=== PATIENT | male | born 1985 | race Asian ===

== ENCOUNTER 2023-08-17 16:34 | Inpatient (IN) | payer OTHER, MEDICARE, SELFPAY ==
[2023-08-17] VITALS (11 sets, daily range): BP systolic 128–164; BP diastolic 70–87; BMI 30.7; BMI 30.5
--- NOTE | 2023-08-17 12:41 | ED.GENMED ---
History of Present Illness
<ELISABETH Degroot - Last Filed: 08/17/23 16:13>
General
Chief Complaint: Fever
Source: patient
Exam Limitations: none
Time Seen by Provider: 08/17/23 12:29
Nursing documentation reviewed up to this point in time: agreed with
Travel History
Have you had any contact with someone who has COVID-19?: No
Do you have any symptoms of coronavirus? Fever > 100 degrees, chills, cough, shortness of breath, sore throat, loss of taste or smell, muscle aches, or headache?: No
History of Present Illness
History of Present Illness:
37-year-old male with past medical history of end-stage renal disease failed kidney transplant presently on hemodialysis Sunday at home, history of hypertension diabetes presents to the ER for evaluation of cough and fever for the
past several days. Patient started Sunday with chills and cough and on Sunday went to his family doctor's office he had tested for COVID flu and RSV which were negative. He has continued with fever as high as 102.5. His forest economist Dr. Bui
prescribed him sleep yesterday. He took 2 tablets yesterday 1 tablet today but continues to complain of fevers. He is not short of breath.
During my exam patient presently has a fever of 101.5
Patient lives with and children they are also sick with similar symptoms.
Patient did his hemodialysis today.
Past History
<ELISABETH Degroot - Last Filed: 08/17/23 16:13>
Past History
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
ED Past Surgical History: Other (Kidney transplant, left upper extremity fistula)
Patient has exhibited threatening behavior?: No
PSI?: No
Social History
Tobacco: Non-smoker
Alcohol: None
Personal:
Living: with family
Review of Systems
<ELISABETH Degroot - Last Filed: 08/17/23 16:13>
Review of Systems
Allergies reviewed?: Yes
All Other Systems: ROS reviewed and negative except as documented in HPI and ROS
Constitutional: Reports fever, fatigue and chills
Respiratory: Reports cough; Denies trouble breathing
Cardiac: Reports no symptoms
ABD/GI: Reports no symptoms
Musculoskeletal: Reports no symptoms
Skin: Reports no symptoms
Psychiatric: Reports no symptoms
Phy Exam
<ELISABETH Degroot - Last Filed: 08/17/23 16:13>
General Physical Exam
General Presentation: no apparent distress
General age: appears stated age
General Skin: warm and dry
General Habitus: normal
General Mental: alert
General Hydration: appears well hydrated
Cardiovascular Exam
Cardiovascular Exam: tachycardia
Pulmonary Exam
Pulmonary Exam: lungs clear, no respiratory distress and other (+ cough )
Neurological Exam
Neurological Exam: alert and oriented x3
Musculoskeletal Exam
Musculoskeletal Exam: full ROM
Skin Exam
Skin Exam: normal color and warm/dry
Psychiatric Exam
Psychiatric Exam: normal mood/affect
Course
<ELISABETH Degroot - Last Filed: 08/17/23 16:13>
Orders/Labs/Results
Orders:
Orders
08/17/23 12:39
Cardiac Monitoring- Treatment ONCE
IV Insert/Care/Rem.- Treatment PRN
08/17/23 12:40
Chest [CR Chest - 2 Views ] Urgent
Comment:
Reason For Exam: sob
08/17/23 12:41
Albuterol Nebs [Ventolin Nebules] 2.5 mg INH R NOW STA
08/17/23 13:12
COVID-19 Antigen Urgent
Source: Nasal Swab
Complete Blood Count/With Diff Urgent
Comprehensive Metabolic Panel Urgent
Lactic Acid Q4H
Comment: CANCEL 2nd LACTIC ACID IF 1st LACTIC ACID IS LESS THAN 2
Blood Culture Q30M
DOLLY Source: Blood/Venous
Specimen Description:
Influenza A+B Rapid Molecular Urgent
DOLLY Source: Nasal Swab
Specimen Description:
08/17/23 13:21
Acetaminophen [Tylenol] 500 mg PO NOW STA
08/17/23 14:11
Vancomycin 1 Gram/200 ml [Vancocin] 1 gram in 200 ml IV NOW
08/17/23 14:12
Piperacillin/Tazo 3.375 Gram [Zosyn] 3.375 gram in 50 ml IV NOW
08/17/23 14:46
0.9% Sodium Chloride 1000 ml [Nss] 1,700 ml IV NOW STA
08/17/23 15:27
Potassium Chloride [KCl] 40 meq PO NOW STA
08/17/23 15:28
Admit/Transfer Patient As Directed
Co-Sign Provider:
Level of Care: Inpatient admission
Assign to:: Medical/Surgical
Physician / Group: abdias
Diagnosis: acute hypoxic respiratory failure
Reason for Hospitalization: acute hypoxic respiratory failure
Expected length of stay greater than two midnights?: Yes
ELOS- Estimated Length of Stay in days: 3
I certify the patient meets the requirements for IP care: Yes
08/17/23 15:29
Code Status As Directed
Resuscitation Status: Full Code
08/17/23 15:35
Blood Culture Q30M
DOLLY Source: Blood/Venous
Specimen Description:
08/17/23 16:45
Lactic Acid Q4H
Comment: CANCEL 2nd LACTIC ACID IF 1st LACTIC ACID IS LESS THAN 2
Abnormal Lab Results
08/17/23
13:12
WBC 2.8 L 10^3/uL
(4.8-10.8)
RBC 2.53 L 10^6/uL
(4.70-6.10)
Hgb 8.4 L g/dL
(13.0-18.0)
Hct 22.9 L %
(39.0-52.0)
MCH 33.2 H pg
(27.0-31.0)
Plt Count 119 L 10^3/uL
(130-400)
Absolute Lymphs (auto) 0.7 L 10^3/uL
(1.2-3.4)
Monocytes % 13.7 H %
(1.7-9.3)
Sodium 134 L mmol/L
(135-145)
Potassium 3.4 L mmol/L
(3.5-5.1)
Chloride 92 L mmol/L
(98-107)
Carbon Dioxide 32 H mmol/L
(22-30)
BUN 27 H mg/dl
(9-20)
Creatinine 6.3 H* mg/dL
(0.7-1.3)
Glucose 258 H mg/dl
(70-99)
AST 78 H U/L
(17-59)
08/17/23 13:12
08/17/23 13:12
Vital Signs
Initial and Last Documented VS:
Initial Vital Signs
Temp Pulse Resp BP Pulse Ox
99.8 F 112 20 143/84 89
08/17/23 11:27 08/17/23 11:27 08/17/23 11:27 08/17/23 11:27 08/17/23 11:27
Last Documented Vital Signs
Temp Pulse Resp BP Pulse Ox
103.2 F H 103 20 144/84 87
08/17/23 13:23 08/17/23 13:23 08/17/23 13:23 08/17/23 13:23 08/17/23 13:23
Manager Quantitative consulted with Physician
Manager Quantitative consulted with physician?: Yes
Name of Physician Consulted: Stuart
<Yuniel Kulkarni, DO - Last Filed: 08/17/23 15:31>
Orders/Labs/Results
Orders:
Orders
08/17/23 12:39
Cardiac Monitoring- Treatment ONCE
IV Insert/Care/Rem.- Treatment PRN
08/17/23 12:40
Chest [CR Chest - 2 Views ] Urgent
Comment:
Reason For Exam: sob
08/17/23 12:41
Albuterol Nebs [Ventolin Nebules] 2.5 mg INH R NOW STA
08/17/23 13:12
COVID-19 Antigen Urgent
Source: Nasal Swab
Complete Blood Count/With Diff Urgent
Comprehensive Metabolic Panel Urgent
Lactic Acid Q4H
Comment: CANCEL 2nd LACTIC ACID IF 1st LACTIC ACID IS LESS THAN 2
Blood Culture Q30M
DOLLY Source: Blood/Venous
Specimen Description:
Influenza A+B Rapid Molecular Urgent
DOLLY Source: Nasal Swab
Specimen Description:
08/17/23 13:21
Acetaminophen [Tylenol] 500 mg PO NOW STA
08/17/23 14:11
Vancomycin 1 Gram/200 ml [Vancocin] 1 gram in 200 ml IV NOW
08/17/23 14:12
Piperacillin/Tazo 3.375 Gram [Zosyn] 3.375 gram in 50 ml IV NOW
08/17/23 14:46
0.9% Sodium Chloride 1000 ml [Nss] 1,700 ml IV NOW STA
08/17/23 15:27
Potassium Chloride [KCl] 40 meq PO NOW STA
08/17/23 15:28
Admit/Transfer Patient As Directed
Co-Sign Provider:
Level of Care: Inpatient admission
Assign to:: Medical/Surgical
Physician / Group: abdias
Diagnosis: acute hypoxic respiratory failure
Reason for Hospitalization: acute hypoxic respiratory failure
Expected length of stay greater than two midnights?: Yes
ELOS- Estimated Length of Stay in days: 3
I certify the patient meets the requirements for IP care: Yes
08/17/23 15:29
Code Status As Directed
Resuscitation Status: Full Code
08/17/23 15:35
Blood Culture Q30M
DOLLY Source: Blood/Venous
Specimen Description:
08/17/23 16:45
Lactic Acid Q4H
Comment: CANCEL 2nd LACTIC ACID IF 1st LACTIC ACID IS LESS THAN 2
Abnormal Lab Results
08/17/23
13:12
WBC 2.8 L 10^3/uL
(4.8-10.8)
RBC 2.53 L 10^6/uL
(4.70-6.10)
Hgb 8.4 L g/dL
(13.0-18.0)
Hct 22.9 L %
(39.0-52.0)
MCH 33.2 H pg
(27.0-31.0)
Plt Count 119 L 10^3/uL
(130-400)
Absolute Lymphs (auto) 0.7 L 10^3/uL
(1.2-3.4)
Monocytes % 13.7 H %
(1.7-9.3)
Sodium 134 L mmol/L
(135-145)
Potassium 3.4 L mmol/L
(3.5-5.1)
Chloride 92 L mmol/L
(98-107)
Carbon Dioxide 32 H mmol/L
(22-30)
BUN 27 H mg/dl
(9-20)
Creatinine 6.3 H* mg/dL
(0.7-1.3)
Glucose 258 H mg/dl
(70-99)
AST 78 H U/L
(17-59)
08/17/23 13:12
08/17/23 13:12
Vital Signs
Initial and Last Documented VS:
Initial Vital Signs
Temp Pulse Resp BP Pulse Ox
99.8 F 112 20 143/84 89
08/17/23 11:27 08/17/23 11:27 08/17/23 11:27 08/17/23 11:27 08/17/23 11:27
Last Documented Vital Signs
Temp Pulse Resp BP Pulse Ox
103.2 F H 103 20 144/84 87
08/17/23 13:23 08/17/23 13:23 08/17/23 13:23 08/17/23 13:23 08/17/23 13:23
<ELISABETH Degroot - Last Filed: 08/17/23 16:13>
MDM/Problems Addressed
Differential Diagnosis Includes:
Not limited to worsening pneumonia, bronchitis, COVID flu
MDM/Problems Addressed:
Patient is a 37-year-old male with history of renal failure failed renal transplant now back on dialysis at home presents to the ER with several days of cough fevers. X-ray shows a right-sided pneumonia. Patient is hypoxic was initially given neb
x-ray does show right-sided pneumonia. Patient was placed on oxygen nasal cannula. Patient has a low white count of 2 .8 Lactic normal. Patient has a low hemoglobin of 8.4 (last hemoglobin was 12.1 in April patient was in the eights - nines
in 2022.
Patient's BUN and creatinine are obviously elevated with a normal potassium of 3.4 glucose elevated. Patient given weight-based fluids IV antibx will adm to the hospitalist service.
Chronic conditions affecting care:
ESRD on HD
<ELISABETH Degroot - Last Filed: 08/17/23 16:13>
*Radiology
Radiology exam reviewed: radiology read reviewed
*Pulse Oximetry
Patient hypoxic: yes
*Critical Care Note
Total Time (30-74mins, 75-104mins- exclusive of procedures): Not Applicable
ED Attending Note
<ELISABETH Degroot - Last Filed: 08/17/23 16:13>
-
Portions of this chart may have been created with voice recognition software.� Occasional wrong word or��sound alike� substitutions may have occurred due to the inherent limitations of voice recognition software.
<Yuniel Kulkarni DO - Last Filed: 08/17/23 15:31>
ED Attending Note
I performed the substantive portion of visit, reviewed & personally made and approve the management plan that is documented in note by myself or JANELLE.: Yes
Discharge Plan
Departure
Patient Disposition: Admit
Date of Disposition: 08/17/23
Time of Disposition: 14:58
Admit to: Med/Surg
Admit to doctor: hospitalist
Presentation/result/management discussed w/ accepting MD/DO: Hospitalist
Patient with high blood pressure during this ER visit?: Yes
Condition: Fair
Covid-19: Not Applicable
Discharge Problem:
hypoxia, Pneumonia
Prescriptions:
No Action
atorvastatin 40 mg Tablet
40 mg PO QPM
azithromycin 250 mg Tablet
0 mg PO .COMPLEX
Patient Comments:
08/17/2023, filled on 08/16/2023 for 5 days.
Rx Instructions:
08/17/2023, For 250 mg dose pack: take 500 mg today (day 1), then 250 mg for 4 days (days 2-5).
amlodipine 5 mg Tablet
5 mg PO BID
acetaminophen [Tylenol Extra Strength] 500 mg Tablet
500 mg PO DAILYPRN PRN (Reason: mild pain)
insulin aspart U-100 [Novolog U-100 Insulin aspart] 100 unit/mL solution
0 unit SC .VIA PUMP
Patient Comments:
08/17/2023, pt. uses roughly 100 units a day and replaces his insulin Q72H; pt. changed his insulin yesterday (08/16/2023) and then took off his pump for dialysis and has not put it back on yet.
calcitriol 0.5 mcg Capsule
0.5 mcg PO QPM
docusate sodium [Stool Softener] 100 mg Capsule
100 mg PO DAILY PRN (Reason: constipation)
metoprolol succinate 25 mg Tablet Extended Release 24 Hr
25 mg PO BID
cinacalcet 30 mg Tablet
30 mg PO MOWE@0800
sevelamer carbonate 800 mg Tablet
1,600 mg PO MEALS
Referrals:
Dalton Solitario MD [Family Provider] -
Interventions
Interventions:
*Risk Screen - Suicide Last Done: 08/17/23 13:26
*General Assessment Last Done: 08/17/23 13:26
*Neglect/Abuse Screening Last Done: 08/17/23 13:26
*ED COVID-19 Vaccine History Last Done: 08/17/23 11:27
Discharge Date and Time
Print Language: JAPANESE
[2023-08-17] MEDS: VENTOLIN NEBULES 2.5 MG INH (13:13)
[2023-08-17] MEDS: TYLENOL 500 MG PO (13:29)
[2023-08-17 13:34] LABS: % Basophils 0.4 % (0-2); % Eosinophils 1.1 % (0-6); % Immature Granulocytes 0.4 % (0-0.5); % Lymphocytes 26.1 % (20.5-51.1); % Monocytes 13.7 % (1.7-9.3); % Neutrophils 58.3 % (42.2-75.2); Absolute Lymphocytes 0.7 10^3/uL (1.2-3.4); Absolute Monocytes 0.4 10^3/uL (0.1-0.6); Absolute Neutrophils 1.7 10^3/uL (1.4-6.5); Hematocrit 22.9 % (39.0-52.0); Hemoglobin 8.4 g/dL (13.0-18.0); Mean Corp Hgb Conc. 36.7 g/dL (33.0-37.0); Mean Corpuscular Hgb 33.2 pg (27.0-31.0); Mean Corpuscular Volume 90.5 fL (80.0-94.0); Nucleated Red Blood Cells % 0 % (-); Platelet Count 119 10^3/uL (130-400); Red Blood Cell Count 2.53 10^6/uL (4.70-6.10); Red Cell Dist. Width 13.2 % (11.5-14.5); White Blood Cell Count 2.8 10^3/uL (4.8-10.8)
[2023-08-17 13:49] LABS: Lactic Acid 1.3 mmol/L (0.7-2.0)
[2023-08-17 14:17] LABS: COVID-19 Antigen Negative (Negative)
[2023-08-17 14:43] LABS: ALT (SGPT) 35 U/L (0-50); AST (SGOT) 78 U/L (17-59); Albumin 3.9 g/dl (3.5-5.0); Alkaline Phosphatase 111 U/L (38-126); Blood Urea Nitrogen 27 mg/dl (9-20); Carbon Dioxide 32 mmol/L (22-30); Chloride 92 mmol/L (98-107); Estimated Creatinine Clearance 15 ml/min; Glucose 258 mg/dl (70-99); Potassium 3.4 mmol/L (3.5-5.1); Sodium 134 mmol/L (135-145); Total Bilirubin 0.8 mg/dl (0.2-1.3); eGFR 10.85
--- NOTE | 2023-08-17 14:58 | HPS.HSE ---
Family Physician
<ELISABETH Angela - Last Filed: 08/17/23 15:56>
-
Family Physician: Dalton Solitario
Chief Complaint
<ELISABETH Angela - Last Filed: 08/17/23 15:56>
-
Cough, fever, chills
History of Present Illness
37-year-old male with past medical history of end-stage renal disease failed kidney transplant presently on hemodialysis Sunday at home, history of hypertension diabetes presents to the ER for evaluation of cough and fever since
Sunday. Patient started Sunday with chills and cough and on Sunday went to his family doctor's office he had tested for COVID flu and RSV which were negative. He has continued with fever as high as 102.5. His machine cage maker Dr. Bui prescribed
Zithromax yesterday .He took 2 tablets yesterday 1 tablet today but continues to complain of fevers. patient complained of mild sob. stated some chest pain. denied MORRIS, dizzy or syncopal episode. stated abdominal muscle pain from cough. denied n/v/d.
denied dysuria or hematuria.
On arrival patient was hypoxic 89-90 on room air. Patient requiring 2 L of oxygen. Chest x-ray with pneumonia. Patient received Vanco and Zosyn in ER. Admitted for further management
Medical History
<ELISABETH Angela - Last Filed: 08/17/23 15:56>
Past Medical History
Past Medical History: Reports Other
Additional Past Medical History:
End-stage renal disease on dialysis Sunday hyperlipidemia
Hyperlipidemia
Hypertension
Type 1 diabetes
Past Surgical History: Reports Other
Additional Past Surgical History:
History of renal transplant
Left upper extremity fistula
Social History
Tobacco: Non-smoker
Alcohol: None
Drug: None
Personal:
Living: With Family
Family History
Family History: Not pertinent
Allergies / Home Medications
Allergies reflects when Allergies were last updated in [facility].
Home Medications with original date entered in [facility]
Allergy/Medication List:
Allergies
Allergy/AdvReac Type Severity Reaction Status Date / Time
No Known Allergies Allergy Verified 08/17/23 11:28
Home Medications
amlodipine 10 mg tablet 10 mg PO DAILY Blood pressure 03/15/22
calcitriol 0.25 mcg capsule 0.25 mcg PO DAILY #30 caps 03/17/22
atorvastatin 10 mg tablet 10 mg PO QPM High cholesterol 06/08/22
guaifenesin 600 mg tablet, extended release 12 hr (Mucinex) 600 mg PO Q12H PRN cough 06/08/22
insulin glargine 100 unit/mL (3 mL) subcutaneous pen (Lantus Solostar U-100 Insulin) 26 unit (0.26 mL) SC HS #5 ea 06/14/22
metoprolol succinate 25 mg tablet,extended release 24 hr 25 mg PO BID #30 tabs 06/14/22
calcium acetate(phosphat bind) 667 mg tablet 1,334 mg PO AC 10/07/22
insulin lispro 100 unit/mL subcutaneous pen 15 unit SC HS 10/07/22
insulin lispro 100 unit/mL subcutaneous pen 15 unit SC NOON 10/07/22
insulin lispro 100 unit/mL subcutaneous pen 20 unit SC DAILY 10/07/22
tacrolimus 1 mg capsule, immediate-release 1 mg BID 10/07/22
Review of Systems
<ELISABETH Angela - Last Filed: 08/17/23 15:56>
-
Constitutional: Reports Fever
EENT: Reports No Symptoms
Respiratory: Reports Cough and Trouble Breathing
Cardiac: Reports No Symptoms and Chest Pain
Abdomen/GI: Reports Abdominal Pain
: Reports No Symptoms
Musculoskeletal: Reports No Symptoms
Skin: Reports No Symptoms
Neurological: Reports No Symptoms
Endocrine: Reports No Symptoms
Hematologic/Lymphatic: Reports No Symptoms
Psych: Reports No Symptoms
Physical Exam
<ELISABETH Angela - Last Filed: 08/17/23 15:56>
Vital Signs
Vital Signs
Temp Pulse Resp BP Pulse Ox
103.2 F H 103 20 144/84 87
08/17/23 13:23 08/17/23 13:23 08/17/23 13:23 08/17/23 13:23 08/17/23 13:23
Physical Exam
General: Well Developed, Well Nourished and No Apparent Distress
HEENT: NormoCephalic, Moist mucous membranes and Atraumatic
Respiratory: Clear
Cardiac: S1/S2 and Regular Rhythm; No Murmur or Rub
GI: Soft, Non Tender, Non Distended and Normal Bowel Sounds; No Organomegaly
Rectal: Deferred by Provider
Musculoskeletal: No Clubbing, No Cyanosis and No Edema
Skin: No Rash
Neuro: AO x 3 and Nonfocal/grossly intact
Psych: Calm
Laboratory Results
<ELISABETH Angela - Last Filed: 08/17/23 15:56>
-
08/17/23 13:12
08/17/23 13:12
Laboratory Results
Lactic Acid 1.3 mmol/L (0.7-2.0) 08/17/23 13:12
Total Bilirubin 0.8 mg/dl (0.2-1.3) 08/17/23 13:12
AST 78 U/L (17-59) H 08/17/23 13:12
ALT 35 U/L (0-50) 08/17/23 13:12
Alkaline Phosphatase 111 U/L (38-126) 08/17/23 13:12
Data Reviewed
<ELISABETH Angela - Last Filed: 08/17/23 15:56>
-
Diagnostic Radiology: Report Reviewed by me
Lab Data: Labs Reviewed by me
Impression/Plan
<ELISABETH Angela - Last Filed: 08/17/23 15:56>
-
# Cough/fever/acute hypoxic respiratory failure likely from right-sided pneumonia
-Sepsis as evident by fever 103.2 WBC 2.8, tachycardia
-Chest x-ray with impression of Findings most suggestive of multifocal pneumonia within the right upper lobe.. No significant pleural effusion.
-Continue supplemental oxygen to keep sat greater than 92
-Wean as tolerated
-COVID-negative
-Flu negative
-IV Vanco and Zosyn continued
-doxy added as per ID
-Tylenol as needed for fever
-Nebs as needed for shortness breath and wheezing
-Blood culture sent from ER
-obtain sputum, strep pneumoniae, legionella
# Anemia of chronic kidney disease/thrombocytopenia
-Hemoglobin stable at 8.4, platelets 119
-No active bleeding
-Continue to monitor
# Hyponatremia/hypokalemia/end-stage renal disease on dialysis
-Sodium 134, potassium 3.4
-Oral KCl
-Dialysis Sunday
-calcitriol, cinacalcet continued
-Renagel continued
-Nephrology consulted
# Type 1diabetes
-Insulin pump continued
-Diabetic DOOR TECHNICIAN consulted
-CHO diet
# Essential hypertension
-Norvasc and metoprolol continued
#HLD
-statin continued
# DVT prophylaxis
-Heparin subcu
# CODE STATUS
-Full code
<Milan Bradford MD - Last Filed: 08/17/23 16:32>
-
# Cough/fever/acute hypoxic respiratory failure likely from right-sided pneumonia
-Sepsis as evident by fever 103.2 WBC 2.8, tachycardia
-Chest x-ray with impression of Findings most suggestive of multifocal pneumonia within the right upper lobe.. No significant pleural effusion.
-Continue supplemental oxygen to keep sat greater than 92
-Wean as tolerated
-COVID-negative
-Flu negative
-IV Vanco and Zosyn continued
-doxy added as per ID
-Tylenol as needed for fever
-Nebs as needed for shortness breath and wheezing
-Blood culture sent from ER
-obtain sputum, strep pneumoniae, legionella
# Anemia of chronic kidney disease/thrombocytopenia
-Hemoglobin stable at 8.4, platelets 119
-No active bleeding
-Continue to monitor
# Hyponatremia/hypokalemia/end-stage renal disease on dialysis
-Sodium 134, potassium 3.4
-Oral KCl
-Dialysis Sunday
-calcitriol, cinacalcet continued
-Renagel continued
-Nephrology consulted
# Type 1diabetes
-Insulin pump continued
-Diabetic DOOR TECHNICIAN consulted
-CHO diet
# Essential hypertension
-Norvasc and metoprolol continued
#HLD
-statin continued
# DVT prophylaxis
-Heparin subcu
# CODE STATUS
-Full code
I saw and examined the patient.
The DOOR TECHNICIAN or PA's note was reviewed and I agree with the note.
Comment: 37 years old male presented with fever, cough and shortness of breath for few days duration. Tried Zithromax but did not help. He drove himself to the hospital. Upon arrival, he was found to have pneumonia. Influenza and COVID test were
negative
Physical Exam
General: Well Developed, Well Nourished and No Apparent Distress
HEENT: Normocephalic, Moist mucous membranes and Atraumatic
Respiratory: rhonchi right side more than left side
Cardiac: S1/S2 and Regular Rhythm; No Murmur or Rub
GI: Soft, Non Tender, Non Distended and Normal Bowel Sounds.
Rectal: No rectal bleeding
Musculoskeletal: No Clubbing, No Cyanosis and No Edema
Skin: No Rash
Neuro: AO x 3 and Nonfocal/grossly intact
Psych: Calm
# Cough/fever/acute hypoxic respiratory failure likely from right-sided pneumonia
-Sepsis as evident by fever 103.2 WBC 2.8, tachycardia
-Chest x-ray with impression of Findings most suggestive of multifocal pneumonia within the right upper lobe.. No significant pleural effusion.
-Continue supplemental oxygen to keep sat greater than 92
-Wean as tolerated
-COVID-negative
-Flu negative
-IV Vanco and Zosyn continued
-doxy added as per ID
-Tylenol as needed for fever
-Nebs as needed for shortness breath and wheezing
-Blood culture sent from ER
-obtain sputum, strep pneumoniae, legionella
# Anemia of chronic kidney disease/thrombocytopenia
-Hemoglobin stable at 8.4, platelets 119
-No active bleeding
-Continue to monitor
# Hyponatremia/hypokalemia/end-stage renal disease on dialysis
-Sodium 134, potassium 3.4
-Oral KCl
-Dialysis Sunday
-calcitriol, cinacalcet continued
-Renagel continued
-Nephrology consulted
# Type 1diabetes
-Insulin pump continued
-Diabetic DOOR TECHNICIAN consulted
-CHO diet
# Essential hypertension
-Norvasc and metoprolol continued
#HLD
-statin continued
# DVT prophylaxis
-Heparin subcu
# CODE STATUS
-Full code
Total time spent to see the patient, examine the patient on the floor, review data and lab results, discuss treatment plan with patient, ER doctor and nursing staff around 75 minutes
[2023-08-17] MEDS: NSS 1700 ML IV (15:27)
[2023-08-17] MEDS: ZOSYN 50 IV (15:28)
[2023-08-17] MEDS: KCL 40 MEQ PO (15:32)
--- NOTE | 2023-08-17 15:44 | W.CON.NEPH ---
Consultation
-
Date/Time Consultation Requested: 08/17/23
Date/Time Consultation Performed: 08/17/23
Requesting Provider: Gustavo Zamora
Performing Provider: Phyllis Leyva
Reason for Consultation: ESRD on HD
Medical History
-
Chief Complaint: ESRD on HD
History of Present Illness:
Mr. Dillard is a 37YOM with PMH of living unrelated kidney transplant in [facility] in 2013 secondary to IgA nephropathy, now failed on home hemo. He also has a history of type 1 diabetes, controlled at this time. He presents to the hospital after
having high fevers at home, started Sunday AM. He was negative for COVID and flu tested by PCP). His only other sxs is cough and pain in his ribs from coughing. Denies sore throat or sinus sxs. also has similar sxs.
Past Medical History
1. IgA nephropathy.
2. Living unrelated kidney transplant, [facility], 2013.
3. Progressive transplant failure by kidney biopsy, March 2022.
4. Type 1 diabetes mellitus.
5. Hypertension.
6. Chronic metabolic acidosis.
7. Secondary hyperparathyroidism.
8. Left arm AV fistula.
9. DERIC in setting of BK viral infection.
Past Surgical History: Other (kidney txp)
Social History
Tobacco: Non-Smoker
Alcohol: None
Drug: None
Personal:
Living: With Family
Employment: Employed (will need work notes, just started new job)
Family History
+ diabetes
Allergies / Home Medications
Allergy/AdvReac Type Severity Reaction Status Date / Time
No Known Allergies Allergy Verified 08/17/23 11:28
�Medication �Instructions �Recorded �Confirmed �Type
amlodipine 10 mg tablet 10 mg PO DAILY Blood pressure 03/15/22 10/07/22 History
calcitriol 0.25 mcg capsule 0.25 mcg PO DAILY #30 caps 03/17/22 10/07/22 Rx
atorvastatin 10 mg tablet 10 mg PO QPM High cholesterol 06/08/22 10/07/22 History
guaifenesin 600 mg tablet, 600 mg PO Q12H PRN cough 06/08/22 10/07/22 History
extended release 12 hr (Mucinex)
insulin glargine 100 unit/mL (3 26 unit (0.26 mL) SC HS #5 ea 06/14/22 10/07/22 Rx
mL) subcutaneous pen (Lantus
Solostar U-100 Insulin)
metoprolol succinate 25 mg 25 mg PO BID #30 tabs 06/14/22 10/07/22 Rx
tablet,extended release 24 hr
calcium acetate(phosphat bind) 667 1,334 mg PO AC 10/07/22 10/07/22 History
mg tablet
insulin lispro 100 unit/mL 15 unit SC HS 10/07/22 10/07/22 History
subcutaneous pen
insulin lispro 100 unit/mL 15 unit SC NOON 10/07/22 10/07/22 History
subcutaneous pen
insulin lispro 100 unit/mL 20 unit SC DAILY 10/07/22 10/07/22 History
subcutaneous pen
tacrolimus 1 mg capsule, 1 mg BID 10/07/22 10/07/22 History
immediate-release
Review of Systems
-
History Source: Patient
All other systems: Negative unless noted
Constitutional: Fever and Fatigue
Respiratory: Cough
Cardiac: Chest Pain
Physical Exam
Vital Signs
Vital Signs
Temp Pulse Resp BP Pulse Ox
103.2 F H 103 20 144/84 87
08/17/23 13:23 08/17/23 13:23 08/17/23 13:23 08/17/23 13:23 08/17/23 13:23
Lab Results
WBC 2.8 10^3/uL (4.8-10.8) L 08/17/23 13:12
RBC 2.53 10^6/uL (4.70-6.10) L 08/17/23 13:12
Hgb 8.4 g/dL (13.0-18.0) L 08/17/23 13:12
Hct 22.9 % (39.0-52.0) L 08/17/23 13:12
Plt Count 119 10^3/uL (130-400) L 08/17/23 13:12
Sodium 134 mmol/L (135-145) L 08/17/23 13:12
Potassium 3.4 mmol/L (3.5-5.1) L 08/17/23 13:12
Chloride 92 mmol/L (98-107) L 08/17/23 13:12
Carbon Dioxide 32 mmol/L (22-30) H 08/17/23 13:12
BUN 27 mg/dl (9-20) H 08/17/23 13:12
Creatinine 6.3 mg/dL (0.7-1.3) H* 08/17/23 13:12
eGFR 10.85 08/17/23 13:12
Glucose 258 mg/dl (70-99) H 08/17/23 13:12
Calcium 9.0 mg/dl (8.4-10.2) 08/17/23 13:12
Albumin 3.9 g/dl (3.5-5.0) 08/17/23 13:12
Physical Exam
General: AOx3, No Distress and Nontoxic
HEENT: PERRL, EOMI, Anicteric, Conjunctivae Clear, Ear/Nose Intact, Hearing Normal, Oropharynx Clear/Moist, Dentition Intact, Facial Symmetry, Neck Supple, Trachea Midline, No JVD and No Thyromegaly
Respiratory: Other (coarse breath sounds bilaterally)
Cardiac: S1/S2
Breast: N/A
Abdomen: Soft, Nontender and Nondistended
Rectal: Deferred by Provider
Genito-urinary: No Costovertebral Tender
Musculoskeletal: No Clubbing, No Cyanosis and No Edema
Skin: No Rash, Warm and Dry
Neuro: Nonfocal/Grossly Intact
Hematologic/Lymphatic: No Cervical Lymphadenopathy
Psych: Mood/afflect pleasant and Insight/judgement good
Vascular Access: AVF
Data Reviewed
-
Radiology: Image Personally Visualized and interpreted (CXR with PNA in the RUL)
Labs: Labs Reviewed by me, Discussed with Physician and Discussed with Patient
Old Records: Reviewed
Assessment/Plan
-
Assessment:
ESRD on home hemo
History of IgA nephropathy with failed txp
acute PNA
diabetes mellitus type 1
[facility]URKT in [place] 2013
Aemia
Secondary hyperpara
Plan:
- patient received full home hemo treatment today
- plan for HD tomorrow with [facility] schedule while inpatient
- overall feeling a bit better after tara initaition yesterday
[2023-08-17] MEDS: VANCOCIN 200 IV (16:20)
[2023-08-17] MEDS: TYLENOL 650 MG PO (17:13)
--- NOTE | 2023-08-17 17:45 | PTCARENOTE ---
Received patient from ED into room 2124. Patient AAOx3, 96% on 3L, BP 146/79 RUE, HR 106, oral temp 104.0F. Cross coverage hospitalist Dr. Ruiz made aware, cooling blanket ordered for fever with goal temp of 100.4F, cooling blanket with rectal
probe applied by this RN. Blood sugar 324, diet order entered for patient, patient states he is not wearing insulin pump from home; novolog sliding scale ordered per cross coverage MD. Patient transferred to telemetry for tachycardia
[2023-08-17 18:03] LABS: Glucose - Point of Care 324 mg/dl (70-99)
[2023-08-17] MEDS: LIPITOR 40 MG PO (18:47)
[2023-08-17] MEDS: RENVELA 1600 MG PO (18:47)
--- NOTE | 2023-08-17 19:04 | PHA.VAN.IN ---
Assessment
- Assessment
Renal Function: Patient has ESRD, on chronic Hemodialysis
Hemodialysis Schedule: MWF
Concomitant Antimicrobials: DOXYCYCLINE, ZOSYN
- Previous Dosing Experience
Previous Regimen: DOSING BY RANDOM LEVELS
Date of Regimen: 10/07/22
Provided Trough of: UNKNOWN
Provided AUC of: UNKNOWN
Patient's SCR is: Elevated compared to previous dosing experience (10/07/22 SCR = 4.9)
Patient's weight is: Elevated compared to previous dosing experience (10/07/22 WT = 69.9 KG)
Plan
- Plan
Initial / Loading Dose: 1500MG
Maintenance Regimen: DOSING BY RANDOM LEVELS
Monitoring: RANDOM VANCOMYCIN LEVEL 08/18/23 AM
Pharmacokinetics Vancomycin I
- -
Patient Age: 37
Patient Sex: Male
Vancomycin Day #: 1
Indication: Pulmonary/Respiratory (SEPSIS)
Requesting Provider: LUISITO
Height / Weight:
Height 5 ft 3 in
Actual Weight 78.1 kg
Pertinent Past Medical History: FAILED KIDNEY TRANSPLANT
- Vital Signs / Lab Results
Temp Pulse Resp BP Pulse Ox
104.0 F H 106 20 146/79 92
08/17/23 18:27 08/17/23 17:20 08/17/23 17:20 08/17/23 17:20 08/17/23 17:20
Lab Results - Hematology
08/17/23
13:12
WBC 2.8 L
Lab Results - Chemistry
08/17/23
13:12
BUN 27 H
Creatinine 6.3 H*
Estimated Creat Clear 15
Albumin 3.9
08/17/23 08/17/23
13:12 16:45
Lactic Acid 1.3 Cancelled
Microbiology Results
08/17/23 13:12 Influenza Types A & B (JAKUB) - Final
Nasal Swab Negative for Influenza A & B, NAAT
Negative results must be combined with clinical observations
and patient history.
Nucleic Acid Amplification test (NAAT)performed on the
[employer] platform.
[2023-08-17] MEDS: NOVOLOG FLEXPEN-HIGH RESISTANCE 10 UNITS SC (19:23)
[2023-08-17] MEDS: VANCOCIN HCL 500 MG 100 IV (19:23)
[2023-08-17] MEDS: NORVASC 5 MG PO (19:24)
[2023-08-17] MEDS: ROCALTROL 0.5 MCG PO (19:24)
[2023-08-17] MEDS: TOPROL XL 25 MG PO (19:25)
[2023-08-17] MEDS: HEPARIN 5000 UNITS SC (19:25)
[2023-08-17] MEDS: COLACE 100 MG PO (19:26)
[2023-08-17] MEDS: VIBRAMYCIN 260 MG IV (20:25)
[2023-08-17 21:16] LABS: Glucose - Point of Care 357 mg/dl (70-99)
[2023-08-17] MEDS: NOVOLOG FLEXPEN 12 UNITS SC (21:44)
[2023-08-18] MEDS: ROBITUSSIN 100 MG PO (02:39)
[2023-08-18 03:34] VITALS: BP 151/82
[2023-08-18] MEDS: DUONEB 3 ML INH (03:38)
[2023-08-18] MEDS: ZOSYN 50 IV (03:50)
[2023-08-18] MEDS: TYLENOL 650 MG PO (04:20)
--- NOTE | 2023-08-18 04:24 | PTCARENOTE ---
Pt restless and unable to remain comfortable w/ cooling blanket. Rectal temp 101.6. Sinus Tach on monitor, HR 100-110s, BP 130-160/70-80s. Pt's demand for oxygen increased from 92-95% 3LNC to 10LMF- 96%. Pt received PRN Neb tx. Tylenol
administered. Sputum and Urine sent earlier in shift. Bld cx's pending. House VARNISHING MACHINE OPERATOR aware of pt's current status. Chart reviewed w/ apprentice architect. No new orders at this time. Pt schedule for HD at 1100. Plan of care discussed with pt.
[2023-08-18 05:41] VITALS: BMI 31.1
[2023-08-18 06:00] VITALS: BMI 31.1
[2023-08-18 06:07] LABS: Hematocrit 21.8 % (39.0-52.0); Hemoglobin 7.6 g/dL (13.0-18.0); Mean Corp Hgb Conc. 34.9 g/dL (33.0-37.0); Mean Corpuscular Volume 94.8 fL (80.0-94.0); Mean Platelet Volume 10.5 fL (7.4-10.4); Platelet Count 106 10^3/uL (130-400); Red Cell Dist. Width 13.2 % (11.5-14.5); White Blood Cell Count 2.9 10^3/uL (4.8-10.8)
[2023-08-18 06:31] LABS: Vancomycin Random 25.1 ug/ml
[2023-08-18 06:37] LABS: Blood Urea Nitrogen 42 mg/dl (9-20); Calcium 8.7 mg/dl (8.4-10.2); Carbon Dioxide 22 mmol/L (22-30); Chloride 98 mmol/L (98-107); Estimated Creatinine Clearance 12 ml/min; Glucose 228 mg/dl (70-99); Potassium 4.1 mmol/L (3.5-5.1); Sodium 135 mmol/L (135-145); eGFR 8.03
[2023-08-18 07:35] VITALS: BP 127/74
[2023-08-18 07:41] LABS: Glucose - Point of Care 247 mg/dl (70-99)
[2023-08-18] MEDS: VENTOLIN NEBULES 1.25 MG INH ×4 (08:21→20:33)
--- NOTE | 2023-08-18 08:31 | PHA.VAN.FU ---
Vancomycin Assessment / Plan
- Assessment
Hemodialysis Schedule: TTh[facility] (dialysis today 08/17)
- Assessment - Therapeutic Drug Monitoring
Random Level: 25.1
- Dosing Plan
Dosing by Level: Hold off on dosing today (dialysis likely to remove up to 40% which would bring level to ~15)
- Monitoring Plan
Random Level: 08/18 in am
- Follow Up
Pharmacy will continue to follow.
Vancomycin Follow UP
- -
Patient Age: 37
Patient Sex: Male
Vancomycin Day #: 2
Indication: Pulmonary/Respiratory (SEPSIS)
Requesting Provider: LUISITO
Height / Weight:
Height 5 ft 3 in
Actual Weight 79.52 kg
Pertinent Past Medical History: FAILED KIDNEY TRANSPLANT
- Vital Signs / Lab Results
Temp Pulse Resp BP Pulse Ox
99.3 F 98 20 127/74 92
08/18/23 07:35 08/18/23 08:26 08/18/23 08:26 08/18/23 07:35 08/18/23 08:26
Lab Results - Hematology
08/17/23 08/18/23
13:12 05:08
WBC 2.8 L 2.9 L
Lab Results - Chemistry
08/17/23 08/18/23
13:12 05:08
BUN 27 H 42 H
Creatinine 6.3 H* 8.1 H*
Estimated Creat Clear 15 12
Albumin 3.9
08/17/23 08/17/23
13:12 16:45
Lactic Acid 1.3 Cancelled
Microbiology Results
08/17/23 23:10 Legionella Urinary Antigen - Final
Urine Negative for Legionella pneumophila Serogroup 1 antigen.
A negative result does not rule out the possiblity of
Legionella infection due to other serogroups or species of
Legionella. Clinical correlation is recommended.
Streptococcus pneumoniae Antigen (M - Final
Negative for Streptococcus pneumoniae antigen.
A negative result does not exclude infection with
Streptococcus pneumoniae. Clinical correlation is
recommended.
08/17/23 13:12 Influenza Types A & B (JAKUB) - Final
Nasal Swab Negative for Influenza A & B, NAAT
Negative results must be combined with clinical observations
and patient history.
Nucleic Acid Amplification test (NAAT)performed on the
[employer] platform.
Therapeutic Drug Monitoring
Random Vancomycin 25.1 ug/ml 08/18/23 05:08
[2023-08-18] MEDS: NOVOLOG FLEXPEN-HIGH RESISTANCE 4 UNITS SC (08:54)
[2023-08-18] MEDS: HEPARIN 5000 UNITS SC ×2 (08:55→20:06)
[2023-08-18] MEDS: RENVELA 1600 MG PO ×2 (08:57→15:49)
[2023-08-18] MEDS: VIBRAMYCIN 260 MG IV (08:57)
[2023-08-18] MEDS: TOPROL XL PO (09:00)
[2023-08-18] MEDS: NORVASC PO (09:00)
--- NOTE | 2023-08-18 09:02 | W.PN.HOSP.TC ---
Today's Communication/Plan
-
.
Assessment / Plan
Assessment / Plan
Physical Exam
General: Well Developed, Well Nourished , cough
HEENT: Normocephalic, Moist mucous membranes and Atraumatic
Respiratory: rhonchi right side more than left side
Cardiac: S1/S2 and Regular Rhythm; No Murmur or Rub
GI: Soft, Non Tender, Non Distended and Normal Bowel Sounds.
Rectal: No rectal bleeding
Musculoskeletal: No Clubbing, No Cyanosis and No Edema
Skin: No Rash
Neuro: AO x 3 and Nonfocal/grossly intact
Psych: Calm
# Cough/fever/acute hypoxic respiratory failure requiring 5-6 liters of O2 with respiratory distress from pneumonia
-Sepsis as evident by fever 103.2 WBC 2.8, tachycardia
-Chest x-ray with impression of Findings most suggestive of multifocal pneumonia within the right upper lobe.. No significant pleural effusion.
-Continue supplemental oxygen to keep sat greater than 92
He continues to have fevers, sob, cough, hypoxia, some hemoptysis noted, could be related to missing HD?
Will repeat chest x ray
--COVID-negative & Flu negative
-IV Vanco and Zosyn continued
-doxy added as per ID
- Negative legionella in urine
-Tylenol as needed for fever
- Add Albuterol Neb QID
-Blood culture sent from ER
-obtain sputum
-Negative strep test
Appreciate pulmonary and ID help
# Anemia of chronic kidney disease/thrombocytopenia
-Hemoglobin stable at 8.4, platelets 119 on admission. HGB at 7.6 this morning
-Continue to monitor
# Hyponatremia/hypokalemia, resolved
# End-stage renal disease on dialysis
-Hemodialysis at home
-calcitriol, cinacalcet continued
-Renagel continued
- Will get HD today
- Appreciate nephrology help
# Type 1diabetes
-Insulin pump is off, c/w ISS
-CHO diet
# Essential hypertension
-Norvasc and metoprolol continued
#HLD
-statin continued
# DVT prophylaxis
-Heparin subcu, hold heparin due to bloody tinged sputum
# CODE STATUS
-Full code
Total time spent to see the patient, examine the patient on the floor, review data and lab results, discuss treatment plan with patient and nursing staff around 57 minutes
Anticipated Discharge: > 48 hours
Subjective/Interval History
-
Date of Service: August 18, 2023
Still with fever, cough and some blood in sputum
Objective Data
-
Labs:
Laboratory Results
08/18/23
05:08
WBC 2.9 L
Hgb 7.6 L
Hct 21.8 L
Plt Count 106 L
Sodium 135
Potassium 4.1
Chloride 98
Carbon Dioxide 22
BUN 42 H
Creatinine 8.1 H*
Glucose 228 H
Calcium 8.7
Vital Signs:
Vital Signs
Temp Pulse Resp BP Pulse Ox
99.3 F 98 20 127/74 92
08/18/23 07:35 08/18/23 08:26 08/18/23 08:26 08/18/23 07:35 08/18/23 08:26
I&O
08/17/23 08/18/23 08/19/23
06:59 06:59 06:59
Intake Total 1080 / 1080
Output Total 75 / 75
Balance 1005 / 1005
[2023-08-18 09:50] LABS: Glycohemoglobin (HgbA1c) 9.2 % (4.0-5.6)
--- NOTE | 2023-08-18 11:15 | CM ---
CM met with pt bedside
Pt resides with his spouse and 2 children (2 and 8 y/o) in a 2SH with OSTE
Full flight to second floor
[facility]
Pt has working glucometer at home
PCP- [facility]
Rx- [facility]
Call to [facility] clinic to make aware of admission
[facility]
Discharge Disposition- home, no needs anticipated
[facility] fax- [phone]
[2023-08-18 12:04] VITALS: BP 144/80
[2023-08-18 12:25] LABS: Glucose - Point of Care 190 mg/dl (70-99)
--- NOTE | 2023-08-18 12:55 | CON.ID ---
Consultation
-
Date/Time Consultation Requested: 08/17/23 17:58
Date/Time Consultation Performed: 08/18/23 12:55
Requesting Provider: Sera SAXENA
Performing Provider: Dr Watkins
Reason for Consultation: pneumonia
Chief Complaint / Past History
Chief Complaint
Cough, fever, chills
History of Present Illness
Mr Dillard is a 37 year old male with ESRD on HD MWF via L AVF due to IgA nephropathy, failed renal transplant, DM1 uncontrolled who presented here for cough, fever, chills since sunday. Outpatient covid and flu testing negative. He was started
on azitrhomycin, took two tablets but ongoing fevers, developed shortness of breath, and chest pain. Also some abdominal pain. No nausea, vomiting, diarrhea, dysuria or hematuria. has similar symptoms.
Since arrival here he was febrile by rectal Ts to Tmax of 104.0, now on oral Ts, BP stable, mildly tachycardic, wbc on arrival 2.8 now 2.9, hgb 7.6, plt 106, no left shift, K 4.1, a1c 9.2, t bili 0.8, ast 78, alt 35, alk phos 111, covid ag neg, CXR
bilateral basilar opacities, legionella/strep pneumo ags neg, resp culture pending, mrsa screen pending, currently on vanc/zosyn, no history of MDRO colonization at this institution. ID is consulted for assistance with management.
Past History
Additional Past Medical History:
End-stage renal disease on dialysis Sunday hyperlipidemia
Hyperlipidemia
Hypertension
Type 1 diabetes
Additional Past Surgical History:
History of renal transplant
Left upper extremity fistula
Allergy History:
No Known Allergies Allergy (Verified 08/17/23 11:28)
Medications Reviewed: Yes
Social History
Tobacco: Non-Smoker
Alcohol: None
Drug: None
Family History
Family History: Not Pertinent
Review of Systems
Review of Systems
General: Fever and Chills
All systems: All other systems were reviewed and were negative
Vital Signs
Temp Pulse Resp BP Pulse Ox
100.1 F 101 18 144/80 96
08/18/23 12:04 08/18/23 12:04 08/18/23 12:04 08/18/23 12:04 08/18/23 12:04
Physical Exam
Physical Exam
Constitutional: No Acute Distress and Chronically Ill
Cardiovascular: Regular Rate and S1/S2; Negative Murmur or Rub
Pulmonary: Clear, Symmetric and Non Labored; Negative Wheezes, Rales or Rhonchi
Gastrointestinal: Soft, Non Tender, Non Distended and Normal Bowel Sounds
Skin: Warm and Dry; Negative Rash or Jaundice
Neurological: Awake and Alert
Lines: Other (on HD, did not examine fistula)
hiding his head and body under the blanket
Lab / Diagnostic Study Results
08/18/23 05:08
08/18/23 05:08
Abs Immat Gran (auto) 0.0 10^3/uL (0-0.05) 08/17/23 13:12
Absolute Neuts (auto) 1.7 10^3/uL (1.4-6.5) 08/17/23 13:12
Absolute Lymphs (auto) 0.7 10^3/uL (1.2-3.4) L 08/17/23 13:12
Absolute Monos (auto) 0.4 10^3/uL (0.1-0.6) 08/17/23 13:12
Absolute Basos (auto) 0.0 10^3/uL (0-0.2) 08/17/23 13:12
Immature Gran % 0.4 % (0-0.5) 08/17/23 13:12
Neutrophils % 58.3 % (42.2-75.2) 08/17/23 13:12
Lymphocytes % 26.1 % (20.5-51.1) 08/17/23 13:12
Monocytes % 13.7 % (1.7-9.3) H 08/17/23 13:12
Eosinophils % 1.1 % (0-6) 08/17/23 13:12
Basophils % 0.4 % (0-2) 08/17/23 13:12
Lactic Acid Cancelled 08/17/23 16:45
Microbiology Results
Micro:
08/17/23 23:10 Legionella Urinary Antigen - Final
Urine Negative for Legionella pneumophila Serogroup 1 antigen.
A negative result does not rule out the possiblity of
Legionella infection due to other serogroups or species of
Legionella. Clinical correlation is recommended.
Streptococcus pneumoniae Antigen (M - Final
Negative for Streptococcus pneumoniae antigen.
A negative result does not exclude infection with
Streptococcus pneumoniae. Clinical correlation is
recommended.
08/17/23 21:53 Respiratory Culture - Pending
Sputum Gram Stain - Pending
08/17/23 18:03 MRSA Screen - Pending
Nose
08/17/23 15:35 Blood Culture - Pending
Blood/Venous
08/17/23 13:12 Influenza Types A & B (JAKUB) - Final
Nasal Swab Negative for Influenza A & B, NAAT
Negative results must be combined with clinical observations
and patient history.
Nucleic Acid Amplification test (NAAT)performed on the
[email or web address] NOW platform.
08/17/23 13:12 Blood Culture - Pending
Blood/Venous
Assessment / Plan
Probable Pneumonia
ESRD on HD
Failed renal transplant
- sputum culture in progress
- blood cultures x2 in progress
- MRSA screen pending
- covid/influenza/legionella/strep pneumo studies neg
- improvement in fever curve likely due to switching route to oral; prefer to continue oral Ts
- start ceftriaxone and switch doxycycline to oral; stop vancomycin/zosyn
- follow clinically
DM2
- recommend tighter glucose control outpatient
Patient hates the cooling blanket - made him very uncomfortable; from my perspective there is no benefit to it dc'd.
Care Review
Plan reviewed with: Physician (Dr Bradford - amanda lara)
[2023-08-18 14:17] LABS: Glucose - Point of Care 169 mg/dl (70-99)
[2023-08-18] MEDS: TYLENOL 1000 MG PO ×2 (14:25→20:31)
--- NOTE | 2023-08-18 14:25 | CON.PUL ---
Consultation
Consultation Request
Date/Time Consultation Requested: 08-18-23
Date/Time Consultation Performed: 08-18-23
Requesting Provider: Hospitalist Darrell
Performing Provider: Dr Foy
Reason for Consultation: dyspnea
Medical History
-
Chief Complaint: dyspnea
History of Present Illness:
Mr. Juan Dillard is a 37/M adm 08-16 with 5 to 6-day history of cough, fever, chills, mild abd pain, started on azithromycin as outpatient last 08-16.
Reportedly patient's and one child have similar symptoms. At ER, fever of 104F, leukopenia, anemia, thrombocytopenia. Chest x-ray with basilar infiltrates.
Significant past medical history of chronic kidney disease on dialysis MWF, failed kidney transplant, hypertension, type 2 diabetes mellitus
Nonsmoker
Not on home O2, no BDs
LLNS, denies use of illicit drugs, vaping or ETOH
Born in [place], came to [place] at age 24 about 12 y ago, intermittent travel to [facility] for vacation
No PH or FH pulm TB
No significant environmental or recreational exposures
Tested for hep B and HIV at HD unit, states last PPD in Apr 2023 (always negative)
Off immunosuppression for failed renal transplant (was on tacrolimus, MMF and low dose prednisone until May 2022)
Past Medical History
Past Medical History: Other (see A&P for PMH/PSH)
Social History
Tobacco: Non-smoker
Alcohol: None
Drug: None
Personal:
Living: With Family
Employment: Employed
Family History
Family History: Reviewed & Not Pertinent
Allergies / Home Medications
Allergies
Allergy/AdvReac Type Severity Reaction Status Date / Time
No Known Allergies Allergy Verified 08/17/23 11:28
Home Medications
�Medication �Instructions �Recorded �Confirmed �Last Taken �Type
acetaminophen 500 mg tablet 500 mg PO DAILYPRN PRN mild pain 08/17/23 08/17/23 08/17/23 History
(Tylenol Extra Strength)
amlodipine 5 mg tablet 5 mg PO BID Blood Pressure 08/17/23 08/17/23 08/16/23 History
atorvastatin 40 mg tablet 40 mg PO QPM High Cholesterol 08/17/23 08/17/23 08/16/23 History
azithromycin 250 mg tablet 0 mg PO .COMPLEX Infection 08/17/23 08/17/23 08/17/23 History
calcitriol 0.5 mcg capsule 0.5 mcg PO QPM Supplement 08/17/23 08/17/23 08/16/23 History
cinacalcet 30 mg tablet 30 mg PO MOWE@0800 Supplement 08/17/23 08/17/23 08/15/23 History
docusate sodium 100 mg capsule 100 mg PO DAILY PRN constipation 08/17/23 08/17/23 08/16/23 History
(Stool Softener)
insulin aspart U-100 100 unit/mL 0 unit SC .VIA PUMP Diabetes 08/17/23 08/17/23 08/16/23 History
subcutaneous solution (Novolog
U-100 Insulin aspart)
metoprolol succinate 25 mg 25 mg PO BID Blood Pressure 08/17/23 08/17/23 08/16/23 History
tablet,extended release 24 hr
sevelamer carbonate 800 mg tablet 1,600 mg PO MEALS Supplement 08/17/23 08/17/23 08/16/23 History
Review of Systems
-
History Source: Patient
All other systems: Negative unless noted
Constitutional: Fever and Chills
Respiratory: Cough and Trouble Breathing
Abdomen/GI: Abdominal Pain
Vitals / Labs / Diagnostic Testing
Vital Signs
Temp Pulse Resp BP Pulse Ox
100.1 F 101 18 144/80 96
08/18/23 12:04 08/18/23 12:04 08/18/23 12:04 08/18/23 12:04 08/18/23 12:04
Lab Data
08/18/23 05:08
08/18/23 05:08
Microbiology
08/17/23 21:53 Sputum Gram Stain - Preliminary
08/17/23 13:12 Blood/Venous Blood Culture - Preliminary
No Growth in 24 hours- Final report to follow
08/17/23 23:10 Urine Legionella Urinary Antigen - Final
Negative for Legionella pneumophila Serogroup 1 antigen.
A negative result does not rule out the possiblity of
Legionella infection due to other serogroups or species of
Legionella. Clinical correlation is recommended.
08/17/23 23:10 Urine Streptococcus pneumoniae Antigen (M - Final
Negative for Streptococcus pneumoniae antigen.
A negative result does not exclude infection with
Streptococcus pneumoniae. Clinical correlation is
recommended.
08/17/23 13:12 Nasal Swab Influenza Types A & B (JAKUB) - Final
Negative for Influenza A & B, NAAT
Negative results must be combined with clinical observations
and patient history.
Nucleic Acid Amplification test (NAAT)performed on the
[employer] platform.
Diagnostic Testing:
Physical Exam
-
HEENT: Normocephalic, Moist Mucous Membranes and Thrush (n)
Cardiovascular: Regular Rhythm, Murmur, Peripheral Edema, Calf Tenderness (n) and JVD
Respiratory: Rales, Rhonchi and Non-Labored Respirations
GI: Soft, Non Distended and Non Tender
Neurology: Awake, AO x 3 and No Motor Deficits
Skin: Warm
General: Respiratory Distress (n)
Assessment
-
Assessment:
Mr. Juan Dillard is a 37/M adm 08-16 with 5 to 6-day history of cough, fever, chills, mild abd pain, started on azithromycin as outpatient last 08-16. Reportedly patient's and one child have similar symptoms. At ER, fever of 104F,
leukopenia, anemia, thrombocytopenia. Chest x-ray with basilar infiltrates. Significant past medical history of chronic kidney disease on dialysis MWF, failed kidney transplant, hypertension, type 2 diabetes mellitus
Impression:
Ac respiratory failure
Fever
Dry cough
Leukopenia
Bilateral pulmonary infiltrates
Acute respiratory failure requiring oxygen
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
COVID pneumonia, adm DH May 2022, received O2, dexam, remdesivir and tozilizumab, did not need home O2 upon d/c
CKD on dialysis MWF (LUE AVF), living donor renal transplant in [place] in 2014, doing OK till 2021, renal transplant impaired function since Apr 2022 returnting to HD, nonfunctioning kidney transplant by May 2022. History of IgA nephropathy,
status post living unrelated kidney transplant in the [place], unfortunately progressive transplant failure, DERIC in setting of BK viral infection followed by varicella infection
HTN
T1DM
Secondary hyperparathyroidism
Nonsmoker
Plan:
Admission chest x-ray with subtle patchy infiltration in the right midlung
Chest ray today with underpenetrated technique but right greater than left basilar infiltrates as well as pulmonary vascular congestion
Intermittent CXR will be followed
Legionella and strep pn urinary antigens negative
Sputum culture contaminated, reordered
MRSA screening pending
COVID and flu test negative
Blood cultures pending
Started empiric ceftriaxone and p.o. doxycycline per ID recommendation on August 17 (admission Vanco and Zosyn discontinued)
Oxygen protocol to continue
Not on home O2, no BDs
LLNS, denies use of illicit drugs, vaping or ETOH
On mid flow nasal cannula 50 L saturation 96%
Born in [place], came to [place] at age 24 about 12 y ago, intermittent travel to [facility] for vacation
No PH or FH pulm TB
No significant environmental or recreational exposures
Tested for hep B and HIV at HD unit, states last PPD in Apr 2023 (always negative)
Off immunosuppression for failed renal transplant (was on tacrolimus, MMF and low dose prednisone until May 2022)
Asp precs
Acapella IS
Mucolytic
Renal following
Received full session on home hemodialysis on August 16 prior to admission
Hemodialysis 08-17
D/w Mr Dillard
--- NOTE | 2023-08-18 14:27 | W.PN.NEPH.HD ---
Assessment
-
- feeling weakness on HD
- on supplemental O2
- hgb low at 7.6, will monitor
Progress Note - Hemodialysis
-
Date of Service: August 18, 2023
Duration: 30 minutes and 3 hours
Potassium Bath: 3
Calcium Bath: 2.5
Opti-Dialyzer: 160
Ultrafiltration: Other
Blood Flow: 400
Dialysate Flow: 600
[2023-08-18] MEDS: RETACRIT 6000 UNITS IV (14:54)
[2023-08-18] MEDS: NOVOLOG FLEXPEN-HIGH RESISTANCE SC (15:13)
--- NOTE | 2023-08-18 15:14 | PTCARENOTE ---
during HD pt complained of feeling hypoglycemic, BG checked and it was 169, could not eat lunch due to HD session and he states that if he eats during HD it drops his blood pressure, and skipped.
[2023-08-18] MEDS: STERILE WATER FOR INJECTION 10 ML IV (15:49)
[2023-08-18] MEDS: ROCEPHIN 1000 MG IV (15:49)
[2023-08-18 15:54] VITALS: BP 137/79
[2023-08-18 16:22] LABS: Glucose - Point of Care 191 mg/dl (70-99)
[2023-08-18] MEDS: NOVOLOG FLEXPEN-HIGH RESISTANCE 2 UNITS SC (16:30)
[2023-08-18] MEDS: RENVELA PO (17:31)
[2023-08-18] MEDS: ROCALTROL 0.5 MCG PO (17:31)
[2023-08-18] MEDS: LIPITOR 40 MG PO (17:33)
[2023-08-18 20:03] VITALS: BP 130/78
[2023-08-18] MEDS: MUCINEX 600 MG PO (20:08)
[2023-08-18] MEDS: TOPROL XL 25 MG PO (20:09)
[2023-08-18] MEDS: NORVASC 5 MG PO (20:09)
[2023-08-18] MEDS: VIBRAMYCIN 100 MG PO (20:09)
[2023-08-18 23:23] LABS: Glucose - Point of Care 381 mg/dl (70-99)
[2023-08-18 23:40] VITALS: BP 120/65
[2023-08-19] VITALS (7 sets, daily range): BP systolic 112–151; BP diastolic 66–82; O2SAT 88; BMI 30.2
[2023-08-19] MEDS: NOVOLOG FLEXPEN 12 UNITS SC (00:32)
[2023-08-19] MEDS: TYLENOL 1000 MG PO ×3 (04:11→18:43)
[2023-08-19 04:13] LABS: Glucose - Point of Care 226 mg/dl (70-99)
[2023-08-19] MEDS: VENTOLIN NEBULES 1.25 MG INH ×4 (06:01→17:57)
[2023-08-19 06:22] LABS: Hemoglobin 7.3 g/dL (13.0-18.0); Mean Corp Hgb Conc. 35.6 g/dL (33.0-37.0); Mean Corpuscular Hgb 32.7 pg (27.0-31.0); Mean Corpuscular Volume 91.9 fL (80.0-94.0); Mean Platelet Volume 10.6 fL (7.4-10.4); Platelet Count 118 10^3/uL (130-400); Red Blood Cell Count 2.23 10^6/uL (4.70-6.10); Red Cell Dist. Width 13.2 % (11.5-14.5); White Blood Cell Count 3.9 10^3/uL (4.8-10.8)
[2023-08-19 06:31] LABS: Hematocrit 20.5 % (39.0-52.0)
[2023-08-19 06:44] LABS: Blood Urea Nitrogen 34 mg/dl (9-20); Calcium 8.9 mg/dl (8.4-10.2); Carbon Dioxide 27 mmol/L (22-30); Chloride 97 mmol/L (98-107); Estimated Creatinine Clearance 15 ml/min; Glucose 209 mg/dl (70-99); Potassium 4.1 mmol/L (3.5-5.1); Sodium 135 mmol/L (135-145); eGFR 11.06
[2023-08-19 07:23] LABS: Glucose - Point of Care 242 mg/dl (70-99)
[2023-08-19] MEDS: HEPARIN 5000 UNITS SC ×2 (09:27→20:27)
[2023-08-19] MEDS: TOPROL XL 25 MG PO ×2 (09:27→20:29)
[2023-08-19] MEDS: VIBRAMYCIN 100 MG PO ×2 (09:27→20:30)
[2023-08-19] MEDS: RENVELA 1600 MG PO ×3 (09:27→17:43)
[2023-08-19] MEDS: NORVASC 5 MG PO ×2 (09:27→20:29)
[2023-08-19] MEDS: MUCINEX 600 MG PO ×2 (09:27→20:29)
[2023-08-19] MEDS: NOVOLOG FLEXPEN-HIGH RESISTANCE 4 UNITS SC (09:28)
--- NOTE | 2023-08-19 10:23 | W.PN.HOSP.TC ---
Addendum entered and electronically signed by Milan Bradford MD 08/19/23 15:12:
Addendum
Mild low iron level, will give IV iron during HD
# Patient wanted to liberate his diet from restrictions.
- ID doctor ordered IGRA, will ask if isolation needed.
End
Original Note:
Today's Communication/Plan
-
.
Assessment / Plan
Assessment / Plan
Physical Exam
General: Well Developed, Well Nourished , cough
HEENT: Normocephalic, Moist mucous membranes and Atraumatic
Respiratory: rhonchi right side more than left side
Cardiac: S1/S2 and Regular Rhythm; No Murmur or Rub
GI: Soft, Non Tender, Non Distended and Normal Bowel Sounds.
Rectal: No rectal bleeding
Musculoskeletal: No Clubbing, No Cyanosis and No Edema
Skin: No Rash
Neuro: AO x 3 and Nonfocal/grossly intact
Psych: Calm
# Cough/fever/acute hypoxic respiratory failure requiring 5-6 liters of O2 with respiratory distress from pneumonia
-Sepsis as evident by fever 103.2 WBC 2.8, tachycardia
-Chest x-ray with impression of Findings most suggestive of multifocal pneumonia within the right upper lobe.. No significant pleural effusion.
-Continue supplemental oxygen to keep sat greater than 92
He continues to have fevers but less sob and cough
D/w nursing staff, try to wean down O2 requirement.
--COVID-negative & Flu negative
-He was on Vanco and Zosyn, now on Rocephin & oral Doxy . Repeat chest x ray 08/17 ( before HD) Increasing bilateral parenchymal airspace opacities.
-doxy added as per ID
- Negative legionella in urine
-Tylenol as needed for fever
- Added Albuterol Neb QID
-Blood cultures are pending
- Sputum culture is sent
-Negative strep test
Appreciate pulmonary and ID help
# Anemia of chronic kidney disease/thrombocytopenia
-Hemoglobin at 7.3 given Epogen IV on 08/17. Avoid transfusion unless necessary, he is on transplant list.
- Check Iron level.
- No active bleeding
# Hyponatremia/hypokalemia, resolved
# End-stage renal disease on dialysis
-Hemodialysis at home
-calcitriol, cinacalcet continued
-Renagel continued
- Will get HD today
- Appreciate nephrology help
# Type 1diabetes
HGB A1 C 9.2 . AM BS 242
-Insulin pump is off, c/w ISS, add Insulin.
-CHO diet
# Essential hypertension
-Norvasc and metoprolol continued
#HLD
-statin continued
# DVT prophylaxis
-Heparin subcu, hold heparin due to bloody tinged sputum
# CODE STATUS
-Full code
Total time spent to see the patient, examine the patient on the floor, review data and lab results, discuss treatment plan with patient and nursing staff around 57 minutes
Anticipated Discharge: > 48 hours
Subjective/Interval History
-
Date of Service: August 19, 2023
No chest pain
Less cough and SOB. He slept well
Night team: positive fevers
Objective Data
-
Labs:
Laboratory Results
08/19/23
05:35
WBC 3.9 L
Hgb 7.3 L
Hct 20.5 L*
Plt Count 118 L
Sodium 135
Potassium 4.1
Chloride 97 L
Carbon Dioxide 27
BUN 34 H
Creatinine 6.2 H*
Glucose 209 H
Calcium 8.9
Vital Signs:
Vital Signs
Temp Pulse Resp BP Pulse Ox
99.7 F 106 19 122/77 90
08/19/23 07:20 08/19/23 07:20 08/19/23 07:20 08/19/23 07:20 08/19/23 07:20
I&O
08/18/23 08/19/23 08/20/23
06:59 06:59 06:59
Intake Total 1080 / 1080 240 / 240
Output Total 75 / 75
Balance 1005 / 1005 240 / 240
--- NOTE | 2023-08-19 10:37 | PTCARENOTE ---
pt continues to be on 10 L of Oxygen of MF, tried to bring down to 8 L and pox dropped to 88% encouraged deep breathing without positive outcome; placed pt back on 10 L of MF and pox went up to 93%, will attempt later to wean down oxygen.
[2023-08-19 11:11] LABS: Glucose - Point of Care 293 mg/dl (70-99)
--- NOTE | 2023-08-19 11:19 | W.PN.NEPH.PH ---
Today's Communication / Plan
-
- HD Sunday
Assessment/Plan
-
Assessment:
ESRD on home hemo
History of IgA nephropathy with failed txp
acute PNA
diabetes mellitus type 1
LURKT in [place] 2013
Aemia
Secondary hyperpara
Plan:
- patient underwent HD yesterday per [facility] schedule while inpatient
- LISETTE due to anemia
- next HD on Sunday
- feeling improved today
- treated for PNA
-
-
Date of Service: August 19, 2023
CC / HPI / ROS
-
Chief Complaint:
ESRD on HD
History of Present Illness:
home hemo patient
arrived with high fevers, pancytopenia
HD yesterday
Review of Systems:
cultures negative
treating with rocephin and doxy
feeling improved
Labs
-
Labs:
WBC 3.9 10^3/uL (4.8-10.8) L 08/19/23 05:35
RBC 2.23 10^6/uL (4.70-6.10) L 08/19/23 05:35
Hgb 7.3 g/dL (13.0-18.0) L 08/19/23 05:35
Hct 20.5 % (39.0-52.0) L* 08/19/23 05:35
Plt Count 118 10^3/uL (130-400) L 08/19/23 05:35
Sodium 135 mmol/L (135-145) 08/19/23 05:35
Potassium 4.1 mmol/L (3.5-5.1) 08/19/23 05:35
Chloride 97 mmol/L (98-107) L 08/19/23 05:35
Carbon Dioxide 27 mmol/L (22-30) 08/19/23 05:35
BUN 34 mg/dl (9-20) H 08/19/23 05:35
Creatinine 6.2 mg/dL (0.7-1.3) H* 08/19/23 05:35
eGFR 11.06 08/19/23 05:35
Glucose 209 mg/dl (70-99) H 08/19/23 05:35
Calcium 8.9 mg/dl (8.4-10.2) 08/19/23 05:35
Albumin 3.9 g/dl (3.5-5.0) 08/17/23 13:12
Physical Exam
-
Vital Signs:
Vital Signs
Temp Pulse Resp BP Pulse Ox
99.7 F 104 22 122/77 90
08/19/23 07:20 08/19/23 10:48 08/19/23 10:48 08/19/23 07:20 08/19/23 10:48
Cardiovascular:: Regular rate and rhythm
Respiratory:: Bilateral: Coarse
Lung Excursion:: Normal
Abdomen:: Nontender and Soft
Bowel Sounds:: Normal
Extremity Edema:: None: Bilateral:
Lewis Catheter: No
[2023-08-19] MEDS: LANTUS 0.119999999999999996 UNITS SC (11:25)
--- NOTE | 2023-08-19 11:30 | W.PN.ID1 ---
Date of Service
Date of Service: August 19, 2023
Today's Communication
viral resp panel
IGRA
switched ctx to meropenem
Assessment / Plan
Probable Pneumonia
ESRD on HD
Failed renal transplant
- sputum culture repeated as first contaminated - gram stain pending
- blood cultures x2 in progress
- MRSA screen negative
- some improvement in fever curve likely due to switching route to oral; prefer to continue oral Ts
- viral resp panel, IGRA tomorrow
- start meropenem and continue doxycycline; stop ceftriaxone
- not currently immunosuppressed, eosinophils normal
- follow clinically
DM2
- recommend tighter glucose control outpatient
Chief Complaint
-: Fever
Subjective / Review of Systems
fevers ongoing
bp stable
leukopenia improved
cr stable
blood cultures no growth to date
resp culture in progress
2 year old daughter and also sick at home, doesnt go to daycare
'I feel better'
no fevers before resp symptoms
hasnt been in [place] in over a year
Vital Signs / Physical Exam
Vital Signs
Vital Signs
Temp Pulse Resp BP Pulse Ox
99.7 F 104 22 122/77 90
08/19/23 07:20 08/19/23 10:48 08/19/23 10:48 08/19/23 07:20 08/19/23 10:48
Physical Exam
Constitutional: No Acute Distress and Chronically Ill
Cardiovascular: Regular Rate and S1/S2; Negative Murmur or Rub
Pulmonary: Clear and Symmetric; Negative Wheezes or Rales
Gastrointestinal: Soft, Non Tender, Non Distended and Normal Bowel Sounds
Skin: Warm and Dry; Negative Rash or Jaundice
Objective Data
Lab Data
Lab Results
08/19/23 05:35
08/19/23 05:35
Estimated Creat Clear 15 ml/min 08/19/23 05:35
Lactic Acid Cancelled 08/17/23 16:45
Total Bilirubin 0.8 mg/dl (0.2-1.3) 08/17/23 13:12
AST 78 U/L (17-59) H 08/17/23 13:12
ALT 35 U/L (0-50) 08/17/23 13:12
Alkaline Phosphatase 111 U/L (38-126) 08/17/23 13:12
Most recent labs reviewed.
Micro Results:
08/19/23 09:39 Respiratory Culture - Pending
Sputum Gram Stain - Pending
08/17/23 18:03 MRSA Screen - Final
Nose No Methicillin Resistant Staphylococcus aureus isolated.
08/18/23 15:19 Blood Culture - Pending
Blood/Venous
08/17/23 15:35 Blood Culture - Preliminary
Blood/Venous No Growth in 24 hours- Final report to follow
08/18/23 15:02 Blood Culture - Pending
Blood/Venous
08/17/23 21:53 Respiratory Culture - Pending
Sputum Gram Stain - Preliminary
08/17/23 13:12 Blood Culture - Preliminary
Blood/Venous No Growth in 24 hours- Final report to follow
08/17/23 23:10 Legionella Urinary Antigen - Final
Urine Negative for Legionella pneumophila Serogroup 1 antigen.
A negative result does not rule out the possiblity of
Legionella infection due to other serogroups or species of
Legionella. Clinical correlation is recommended.
Streptococcus pneumoniae Antigen (M - Final
Negative for Streptococcus pneumoniae antigen.
A negative result does not exclude infection with
Streptococcus pneumoniae. Clinical correlation is
recommended.
08/17/23 13:12 Influenza Types A & B (JAKUB) - Final
Nasal Swab Negative for Influenza A & B, NAAT
Negative results must be combined with clinical observations
and patient history.
Nucleic Acid Amplification test (NAAT)performed on the
[employer] platform.
[2023-08-19 12:37] LABS: Iron 48 ug/dl (49-181)
[2023-08-19] MEDS: NOVOLOG FLEXPEN-HIGH RESISTANCE 7 UNITS SC (13:05)
[2023-08-19] MEDS: MERREM 500 MG IV ×2 (13:11→16:24)
[2023-08-19] MEDS: STERILE WATER FOR INJECTION 10 ML IV ×2 (13:12→16:24)
--- NOTE | 2023-08-19 15:36 | W.PN.PUL3 ---
Today's Communication / Plan
-
O2
Atbs
CXR AM
Assessment
-
Assessment:
Mr. Juan Dillard is a 37/M adm 08-16 with 5 to 6-day history of cough, fever, chills, mild abd pain, started on azithromycin as outpatient last 08-16. Reportedly patient's and one child have similar symptoms. At ER, fever of 104F,
leukopenia, anemia, thrombocytopenia. Chest x-ray with basilar infiltrates. Significant past medical history of chronic kidney disease on dialysis MWF, failed kidney transplant, hypertension, type 2 diabetes mellitus
Impression:
Ac respiratory failure
Fever
Productive cough: mild hemoptysis (pinkish sputum)
Leukopenia
Bilateral pulmonary infiltrates
Acute respiratory failure requiring oxygen
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
COVID pneumonia, adm May 2022, received O2, dexam, remdesivir and tozilizumab, did not need home O2 upon d/c
CKD on dialysis MWF (LUE AVF), living donor renal transplant in [place] in 2014, doing OK till 2021, renal transplant impaired function since Apr 2022 returnting to HD, nonfunctioning kidney transplant by May 2022. History of IgA nephropathy,
status post living unrelated kidney transplant in the [place], unfortunately progressive transplant failure, DERIC in setting of BK viral infection followed by varicella infection
HTN
T1DM
Secondary hyperparathyroidism
Nonsmoker
Plan:
Admission chest x-ray with subtle patchy infiltration in the right midlung
Chest ray 08-17, underpenetrated technique but right greater than left basilar infiltrates as well as pulmonary vascular congestion
Intermittent CXR will be followed 08-19, chest CT depending on scenario
Legionella and strep pn urinary antigens negative
Sputum culture contaminated, reordered, 08-18 pending
Mild pinkish sputum, reports improvement
Reports interim moderate improvement in dyspnea and productive cough
MRSA screening pending
COVID and flu test negative
Blood cultures pending
Viral panel 08-18 pending
Interferon Gamma Release Assay for TB 08-18 pending
Started empiric ceftriaxone and p.o. doxycycline per ID recommendation on August 17 (admission Vanco and Zosyn discontinued)
ID adjusted atbs 08-18 to meropenem and po doxy bid
May qualify for bronchoscopy depending on response
Oxygen protocol to continue
Not on home O2, no BDs
LLNS, denies use of illicit drugs, vaping or ETOH
On mid flow nasal cannula 50 L saturation 96%
Born in [place], came [place] at age 24 about 12 y ago, intermittent travel to [place] for vacation
No PH or FH pulm TB
No significant environmental or recreational exposures
Tested for hep B and HIV at HD unit, states last PPD in Apr 2023 (always negative)
Off immunosuppression for failed renal transplant (was on tacrolimus, MMF and low dose prednisone until May 2022)
Asp precs
Acapella, IS
Mucolytic
Renal following
Received full session on home hemodialysis on August 16 prior to admission
Hemodialysis 08-17, next session 08-20
D/w Mr Dillard on a daily basis
Subjective Data
-
Date of Service:
Date of Service: August 19, 2023
Chief Complaint: Pulmonary Follow Up
Subjective:
No major events reported overnight
Reports improvement of '70%' in dyspnea and cough as compared to prior to admission
Mild pinkish colored sputum improving in volume and color, very light pinkish today
Hemodialysis yesterday, neck session on Sunday
Review of Systems
General: Fever (intermittent) and Sweats
Cardiopulmonary: Dyspnea, Dyspnea on Exertion, Cough, Sputum Production and Hemoptysis (light pinkish sputum, no frothy)
GI: Abdominal Pain (n), Nausea (n) and Vomiting (n)
Neuro: Weakness
Objective Data
Data Reviewed
Vital Signs / I&O / Oxygen:
Vital Signs
Temp Pulse Resp BP Pulse Ox
101.1 F H 84 22 117/69 94
08/19/23 11:33 08/19/23 14:39 08/19/23 14:39 08/19/23 11:33 08/19/23 14:39
Intake and Output
08/18/23 08/19/23 08/20/23
06:59 06:59 06:59
Intake Total 1080 / 1080 240 / 240
Output Total 75 / 75
Balance 1005 / 1005 240 / 240
SaO2 94
Nasal Cannula flow liters per 10
minute
Physical Exam
General: Respiratory Distress (improving) and Good Appetite
HEENT: Normocephalic, Moist Mucous Membranes and Thrush
Cardiovascular: Regular Rhythm, Murmur (n), Peripheral Edema (n) and Calf Tenderness (n)
Respiratory: Wheeze, Crackles, Rhonchi, Non-Labored Respirations and Stridor (n)
GI: Soft, Non Distended and Non Tender
Neurology: Awake, AO x 3 and No Motor Deficits
Skin: Warm
Labs/Micro/Reports
Lab Data
08/19/23 05:35
08/19/23 05:35
Microbiology
08/18/23 15:02 Blood/Venous Blood Culture - Preliminary
No Growth in 24 hours- Final report to follow
08/19/23 09:39 Sputum Gram Stain - Preliminary
08/17/23 13:12 Blood/Venous Blood Culture - Preliminary
No Growth in 48 hours- Final report to follow
08/17/23 21:53 Sputum Respiratory Culture - Preliminary
Usual Respiratory Bela
08/17/23 21:53 Sputum Gram Stain - Preliminary
08/17/23 18:03 Nose MRSA Screen - Final
No Methicillin Resistant Staphylococcus aureus isolated.
08/17/23 15:35 Blood/Venous Blood Culture - Preliminary
No Growth in 24 hours- Final report to follow
08/17/23 23:10 Urine Legionella Urinary Antigen - Final
Negative for Legionella pneumophila Serogroup 1 antigen.
A negative result does not rule out the possiblity of
Legionella infection due to other serogroups or species of
Legionella. Clinical correlation is recommended.
08/17/23 23:10 Urine Streptococcus pneumoniae Antigen (M - Final
Negative for Streptococcus pneumoniae antigen.
A negative result does not exclude infection with
Streptococcus pneumoniae. Clinical correlation is
recommended.
08/17/23 13:12 Nasal Swab Influenza Types A & B (JAKUB) - Final
Negative for Influenza A & B, NAAT
Negative results must be combined with clinical observations
and patient history.
Nucleic Acid Amplification test (NAAT)performed on the
[employer] platform.
[2023-08-19] MEDS: ROCALTROL 0.5 MCG PO (17:43)
[2023-08-19] MEDS: LIPITOR 40 MG PO (17:45)
[2023-08-19 17:56] LABS: Glucose - Point of Care 305 mg/dl (70-99)
[2023-08-19] MEDS: NOVOLOG FLEXPEN-HIGH RESISTANCE 10 UNITS SC (18:37)
[2023-08-19 21:29] LABS: Glucose - Point of Care 285 mg/dl (70-99)
[2023-08-20] MEDS: TYLENOL 1000 MG PO ×3 (02:13→20:23)
[2023-08-20 03:06] VITALS: BP 125/71
[2023-08-20 06:30] LABS: Hemoglobin 7.1 g/dL (13.0-18.0); Mean Corpuscular Volume 91.6 fL (80.0-94.0); Mean Platelet Volume 10.3 fL (7.4-10.4); Platelet Count 128 10^3/uL (130-400); Red Blood Cell Count 2.15 10^6/uL (4.70-6.10); Red Cell Dist. Width 13.2 % (11.5-14.5); White Blood Cell Count 5.3 10^3/uL (4.8-10.8)
[2023-08-20 06:34] LABS: Hematocrit 19.7 % (39.0-52.0)
[2023-08-20 07:01] LABS: Blood Urea Nitrogen 48 mg/dl (9-20); Calcium 8.8 mg/dl (8.4-10.2); Carbon Dioxide 26 mmol/L (22-30); Chloride 97 mmol/L (98-107); Estimated Creatinine Clearance 10 ml/min; Glucose 236 mg/dl (70-99); Potassium 4.4 mmol/L (3.5-5.1); Sodium 135 mmol/L (135-145); eGFR 7.07
[2023-08-20 07:15] VITALS: BP 133/72
[2023-08-20] MEDS: VENTOLIN NEBULES 1.25 MG INH ×3 (07:20→19:34)
[2023-08-20 07:30] LABS: Glucose - Point of Care 251 mg/dl (70-99)
--- NOTE | 2023-08-20 08:28 | PN.DE.MGMTRT ---
Insulin Management
- -
08/20/2023: Diabetes Management Consult.
37 year old old male admitted with severe sepsis, pansinusitis, Pneumonia/COVID, Acute on CKD and DKA.
PMH: HTN, IgA nephropathy s/p kidney transplant in [place] in 2014 with subsequent T2DM s/p transplant since 2018, has been on insulin therapy via pump since 2019- Medtronic MiniMed [id number] NovoLog insulin and CGM-Guardian. He is followed by [facility]
Endocrinology Dr. Madhuri Alvarado.
A1C on admission 9.2%, was 6.9% 10/07/2022. Pt does not have Type 1 DM as documented in chart, he underwent antibody testing by his Endo which were negative.
Pt awake, A/O x3, curled up in bed, c/o back pain, nausea and poor appetite. Able to discuss diabetes mgt.
States he uses a total of 100 units of insulin daily via pump therapy.
Noted for persistent Hyperglycemia, FBG 236 this AM, premeal range is 242 to 305, requiring 7-10 units of additional corrective insulin
Will start Basal/bolus regimen. Give Lantus 15 units daily, ,1st dose NOW. Start NovoLog 7 units AC. Change from high to moderate corrective with meals.
Pt requesting to stay on SQ injections, states he dose not have any supplies or insulin to resume his pump today
Diabetes History
- -
Type of Diabetes: 2 requiring insulin
Pre-Admission Diabetes Regimen
08/20/23
06:18
Creatinine 9.0 H*
Lab Results
Hemoglobin A1c 9.2 % (4.0-5.6) H 08/18/23 05:08
Insulin Pump Settings
IP Diabetes Regimen
08/19/23 08/19/23 08/19/23
11:10 17:54 21:28
Glucose
POC Glucose 293 H 305 H 285 H
08/20/23 08/20/23
06:18 07:28
Glucose 236 H
POC Glucose 251 H
Meal type: Lunch
Meal type: Breakfast
Amount consumed: 40%
Amount consumed: 95%
Patient Education
[2023-08-20] MEDS: RENVELA 1600 MG PO ×3 (09:11→17:10)
[2023-08-20] MEDS: HEPARIN 5000 UNITS SC ×2 (09:12→20:24)
[2023-08-20] MEDS: NORVASC 5 MG PO ×2 (09:12→20:23)
[2023-08-20] MEDS: TOPROL XL 25 MG PO ×2 (09:12→20:23)
[2023-08-20] MEDS: VIBRAMYCIN 100 MG PO ×2 (09:12→20:24)
[2023-08-20] MEDS: MUCINEX 600 MG PO ×2 (09:12→20:23)
[2023-08-20] MEDS: SENSIPAR 30 MG PO (09:12)
[2023-08-20] MEDS: NOVOLOG FLEXPEN-HIGH RESISTANCE 7 UNITS SC (09:13)
--- NOTE | 2023-08-20 09:35 | PTCARENOTE ---
pt states bloody sputum. lungs are course this am. Patient remains on 10 L midflow. Chest xray scheduled for this am . Dr. Lee and Roland notified
--- NOTE | 2023-08-20 10:54 | W.PN.ID1 ---
Addendum entered and electronically signed by Francisca Watkins MD 08/20/23 12:21:
contact precautions for duration of illness
correction he is on 10L midflow; not stable for dc
would wean as able
tessalon prn
Original Note:
Date of Service
Date of Service: August 20, 2023
Today's Communication
- pneumonia is due to human metapneumovirus - care is supportive
- saturations acceptable on room air
Stable for dc from ID perspective
Assessment / Plan
Viral Pneumonia
ESRD on HD
Failed renal transplant
- not currently immunosuppressed
- pneumonia is due to human metapneumovirus - care is supportive; antibiotis stopped
- saturations acceptable on room air
Stable for dc from ID perspective
DM2
- recommend tighter glucose control outpatient
Chief Complaint
-: Fever and Pneumonia
Subjective / Review of Systems
fever curve is improving
bp stable
improved leukopenia
K normal
viral resp panel back
cough is bothersome
Vital Signs / Physical Exam
Vital Signs
Vital Signs
Temp Pulse Resp BP Pulse Ox
98.1 F 97 20 133/72 91
08/20/23 07:15 08/20/23 09:12 08/20/23 07:33 08/20/23 09:12 08/20/23 07:33
Physical Exam
Constitutional: No Acute Distress
Cardiovascular: Regular Rate and S1/S2; Negative Murmur or Rub
Pulmonary: Clear, Symmetric, Non Labored and Other (streaky hemoptysis); Negative Wheezes or Rales
Gastrointestinal: Soft, Non Tender, Non Distended and Normal Bowel Sounds
Skin: Warm and Dry; Negative Rash or Jaundice
Objective Data
Lab Data
Lab Results
08/20/23 06:18
08/20/23 06:18
Estimated Creat Clear 10 ml/min 08/20/23 06:18
Lactic Acid Cancelled 08/17/23 16:45
Total Bilirubin 0.8 mg/dl (0.2-1.3) 08/17/23 13:12
AST 78 U/L (17-59) H 08/17/23 13:12
ALT 35 U/L (0-50) 08/17/23 13:12
Alkaline Phosphatase 111 U/L (38-126) 08/17/23 13:12
Most recent labs reviewed.
Micro Results:
08/19/23 09:39 Respiratory Culture - Preliminary
Sputum Usual Respiratory Bela
Gram Stain - Preliminary
08/17/23 21:53 Respiratory Culture - Final
Sputum Usual Respiratory Bela
Gram Stain - Final
08/19/23 14:28 Influenza Type A (PCR) - Final
Nasalpharynx Not Detected
Influenza Type A (H1) (PCR) - Final
Not Detected
Influenza Type A (H3) (PCR) - Final
Not Detected
Influenza Type B (PCR) - Final
Not Detected
Resp Syncytial Virus Type A (PCR) - Final
Not Detected
Resp Syncytial Virus Type B (PCR) - Final
Not Detected
Adenovirus DNA (PCR) - Final
Not Detected
Human Metapneumovirus (PCR) - Final
DETECTED
Parainfluenza Virus Type 1 (PCR) - Final
Not Detected
Parainfluenza Virus Type 2 (PCR) - Final
Not Detected
Parainfluenza Virus Type 3 (PCR) - Final
Not Detected
Parainfluenza Virus Type 4 - Final
Not Detected
Rhinovirus (PCR) - Final
Not Detected
08/18/23 15:19 Blood Culture - Preliminary
Blood/Venous No Growth in 24 hours- Final report to follow
08/17/23 15:35 Blood Culture - Preliminary
Blood/Venous No Growth in 48 hours- Final report to follow
08/18/23 15:02 Blood Culture - Preliminary
Blood/Venous No Growth in 24 hours- Final report to follow
08/17/23 13:12 Blood Culture - Preliminary
Blood/Venous No Growth in 48 hours- Final report to follow
08/17/23 18:03 MRSA Screen - Final
Nose No Methicillin Resistant Staphylococcus aureus isolated.
08/17/23 23:10 Legionella Urinary Antigen - Final
Urine Negative for Legionella pneumophila Serogroup 1 antigen.
A negative result does not rule out the possiblity of
Legionella infection due to other serogroups or species of
Legionella. Clinical correlation is recommended.
Streptococcus pneumoniae Antigen (M - Final
Negative for Streptococcus pneumoniae antigen.
A negative result does not exclude infection with
Streptococcus pneumoniae. Clinical correlation is
recommended.
08/17/23 13:12 Influenza Types A & B (JAKUB) - Final
Nasal Swab Negative for Influenza A & B, NAAT
Negative results must be combined with clinical observations
and patient history.
Nucleic Acid Amplification test (NAAT)performed on the
[employer] platform.
[2023-08-20 11:00] VITALS: BP 126/75
[2023-08-20 11:07] LABS: Glucose - Point of Care 217 mg/dl (70-99)
--- NOTE | 2023-08-20 11:20 | W.PN.PUL3 ---
Today's Communication / Plan
-
O2
Atbs
HD as per nephrology
Walking O2 study prior to discharge
TTE today --> follow up results
Assessment
-
Assessment:
Mr. Juan Dillard is a 37/M adm 08-16 with 5 to 6-day history of cough, fever, chills, mild abd pain, started on azithromycin as outpatient last 08-16. Reportedly patient's and one child have similar symptoms. At ER, fever of 104F,
leukopenia, anemia, thrombocytopenia. Chest x-ray with basilar infiltrates. Significant past medical history of chronic kidney disease on dialysis MWF, failed kidney transplant, hypertension, type 2 diabetes mellitus
Impression:
Acute respiratory failure with hypoxia due to viral pneumonia in the setting of possible acute interstitial edema
Supplemental oxygen dependent due to multifocal pneumonia
Fever
Productive cough: mild hemoptysis (pinkish sputum)
Leukopenia
Bilateral pulmonary infiltrates
Anemia (Hb baeline 8.5-10)
Conditions VIDEO INTERN:
COVID pneumonia, adm DH May 2022, received O2, dexam, remdesivir and tozilizumab, did not need home O2 upon d/c
CKD on dialysis MWF ([facility]UE AV[facility]), living donor renal transplant in [facility] in 2014, doing OK till 2021, renal transplant impaired function since Apr 2022 returnting to HD, nonfunctioning kidney transplant by May 2022. History of IgA nephropathy,
status post living unrelated kidney transplant in the 9013, unfortunately progressive transplant failure, DERIC in setting of BK viral infection followed by varicella infection
HTN
T1DM
Secondary hyperparathyroidism
Nonsmoker
Plan:
Admission chest x-ray with subtle patchy infiltration in the right midlung
Chest ray 08-17, underpenetrated technique but right greater than left basilar infiltrates as well as pulmonary vascular congestion
Intermittent CXR will be followed 08-19, chest CT depending on scenario
Legionella and strep pn urinary antigens negative
Sputum culture contaminated, reordered, 08-18 pending
Mild pinkish sputum, reports improvement
Reports interim moderate improvement in dyspnea and productive cough
MRSA screening pending
COVID and flu test negative
Blood cultures pending
Viral panel 08-18 (+) for human metapneumovirus
Interferon Gamma Release Assay for TB 08-18 pending
Started empiric ceftriaxone and p.o. doxycycline per ID recommendation on August 17 (admission Vanco and Zosyn discontinued)
ID adjusted atbs 08-18 to meropenem and po doxy bid --> given patient has evidence of viral pneumonia, continue with short course of antibiotics, currently on doxycycline; meropenem DC'd
May qualify for bronchoscopy depending on response
Oxygen protocol to continue --> explained that he may need temporary oxygen after discharge but he says that he would not be amenable to doing this as he already has equipment at home for dialysis and children at home
Not on home O2, no BDs
Denies use of illicit drugs, vaping or ETOH
Continue supplemental oxygen to maintain SpO2 >90-94%
Transfuse if needed to maintain Hb >7 g/dL
Born in [place], came to [place] at age 24 about 12 y ago, intermittent travel to [facility] for vacation
No PH or FH pulm TB
No significant environmental or recreational exposures
Tested for hep B and HIV at HD unit, states last PPD in Apr 2023 (always negative)
Off immunosuppression for failed renal transplant (was on tacrolimus, MMF and low dose prednisone until May 2022)
Follow-up QuantiFERON
Asp precs
Acapella, IS
Mucolytics
Renal following
Received full session on home hemodialysis on August 16 prior to admission
Hemodialysis 08-17, next session tomorrow
D/w Mr Dillard on a daily basis
Total time spent today was 50 minutes for this encounter. Time includes reviewing laboratory test/imaging results, reviewing pertinent medical records, obtaining and reviewing medical history, performing an appropriate exam, ordering medications,
tests and procedures. Time also includes documentation of this encounter, coordinating patient care and communicating with other healthcare professionals. Total time does not include separately billed tests performed on this date of service.
Subjective Data
-
Date of Service:
Date of Service: August 20, 2023
Chief Complaint: Pulmonary Follow Up
Subjective:
Patient seen this morning and he is resting in bed in no acute distress. Still has a cough that is bothersome to him. Currently on 10 L/min nasal cannula and is sitting in chair no acute stress. He denies any chest pain, headache, fevers or
chills.
Review of Systems
General: Other (Negative unless mentioned above)
Objective Data
Data Reviewed
Vital Signs / I&O / Oxygen:
Vital Signs
Temp Pulse Resp BP Pulse Ox
98.1 F 97 20 133/72 91
08/20/23 07:15 08/20/23 09:12 08/20/23 07:33 08/20/23 09:12 08/20/23 07:33
Intake and Output
08/19/23 08/20/23 08/21/23
06:59 06:59 06:59
Intake Total 240 / 240 480 / 480
Balance 240 / 240 480 / 480
SaO2 91
Nasal Cannula flow liters per 10
minute
Physical Exam
General: Respiratory Distress (Negative at rest) and Good Appetite
HEENT: Normocephalic, Anicteric and Moist Mucous Membranes
Cardiovascular: Regular Rhythm, Murmur (n), Peripheral Edema (n) and Calf Tenderness (n)
Respiratory: Wheeze (Negative), Crackles (Bilaterally), Rhonchi (Bilateral), Non-Labored Respirations and Stridor (n)
GI: Soft, Non Distended and Non Tender
Neurology: AO x 3 and No Motor Deficits
Skin: Warm and Dry
Labs/Micro/Reports
Lab Data
08/20/23 06:18
05/20/24 06:18
Microbiology
08/19/23 09:39 Sputum Respiratory Culture - Preliminary
Usual Respiratory Bela
08/19/23 09:39 Sputum Gram Stain - Preliminary
08/17/23 21:53 Sputum Respiratory Culture - Final
Usual Respiratory Bela
08/17/23 21:53 Sputum Gram Stain - Final
08/19/23 14:28 Nasalpharynx Influenza Type A (PCR) - Final
Not Detected
08/19/23 14:28 Nasalpharynx Influenza Type A (H1) (PCR) - Final
Not Detected
08/19/23 14:28 Nasalpharynx Influenza Type A (H3) (PCR) - Final
Not Detected
08/19/23 14:28 Nasalpharynx Influenza Type B (PCR) - Final
Not Detected
08/19/23 14:28 Nasalpharynx Resp Syncytial Virus Type A (PCR) - Final
Not Detected
08/19/23 14:28 Nasalpharynx Resp Syncytial Virus Type B (PCR) - Final
Not Detected
08/19/23 14:28 Nasalpharynx Adenovirus DNA (PCR) - Final
Not Detected
08/19/23 14:28 Nasalpharynx Human Metapneumovirus (PCR) - Final
DETECTED
08/19/23 14:28 Nasalpharynx Parainfluenza Virus Type 1 (PCR) - Final
Not Detected
08/19/23 14:28 Nasalpharynx Parainfluenza Virus Type 2 (PCR) - Final
Not Detected
08/19/23 14:28 Nasalpharynx Parainfluenza Virus Type 3 (PCR) - Final
Not Detected
08/19/23 14:28 Nasalpharynx Parainfluenza Virus Type 4 - Final
Not Detected
08/19/23 14:28 Nasalpharynx Rhinovirus (PCR) - Final
Not Detected
08/18/23 15:19 Blood/Venous Blood Culture - Preliminary
No Growth in 24 hours- Final report to follow
08/17/23 15:35 Blood/Venous Blood Culture - Preliminary
No Growth in 48 hours- Final report to follow
08/18/23 15:02 Blood/Venous Blood Culture - Preliminary
No Growth in 24 hours- Final report to follow
08/17/23 13:12 Blood/Venous Blood Culture - Preliminary
No Growth in 48 hours- Final report to follow
08/17/23 18:03 Nose MRSA Screen - Final
No Methicillin Resistant Staphylococcus aureus isolated.
08/17/23 23:10 Urine Legionella Urinary Antigen - Final
Negative for Legionella pneumophila Serogroup 1 antigen.
A negative result does not rule out the possiblity of
Legionella infection due to other serogroups or species of
Legionella. Clinical correlation is recommended.
08/17/23 23:10 Urine Streptococcus pneumoniae Antigen (M - Final
Negative for Streptococcus pneumoniae antigen.
A negative result does not exclude infection with
Streptococcus pneumoniae. Clinical correlation is
recommended.
08/17/23 13:12 Nasal Swab Influenza Types A & B (JAKUB) - Final
Negative for Influenza A & B, NAAT
Negative results must be combined with clinical observations
and patient history.
Nucleic Acid Amplification test (NAAT)performed on the
[employer] platform.
[2023-08-20] MEDS: LANTUS 0.149999999999999994 UNITS SC (11:27)
[2023-08-20] MEDS: NOVOLOG FLEXPEN-MODERATE RESISTANCE 3 UNITS SC (11:28)
[2023-08-20] MEDS: NOVOLOG FLEXPEN 7 UNITS SC ×2 (11:28→17:10)
--- NOTE | 2023-08-20 13:11 | W.PN.NEPH.PH ---
Today's Communication / Plan
-
HD tomorrow
Assessment/Plan
-
Assessment:
ESRD on home hemo
History of IgA nephropathy with failed txp
acute PNA
diabetes mellitus type 1
[facility] in [place] 2013
Aemia
Secondary hyperpara
Plan:
HD tomorrow
follow Hgb, will try not to transfuse given active transplant waiting list
increase LISETTE
wean O2 as allowed
-
-
Date of Service: August 20, 2023
CC / HPI / ROS
-
Chief Complaint:
ESRD on HD
History of Present Illness:
home hemo patient
arrived with high fevers, pancytopenia
tolerated HD sunday
still with high O2 requirements
Review of Systems:
cultures negative
still with SOB
no CP
Labs
-
Labs:
WBC 5.3 10^3/uL (4.8-10.8) 08/20/23 06:18
RBC 2.15 10^6/uL (4.70-6.10) L 08/20/23 06:18
Hgb 7.1 g/dL (13.0-18.0) L 08/20/23 06:18
Hct 19.7 % (39.0-52.0) L* 08/20/23 06:18
Plt Count 128 10^3/uL (130-400) L 08/20/23 06:18
Sodium 135 mmol/L (135-145) 08/20/23 06:18
Potassium 4.4 mmol/L (3.5-5.1) 08/20/23 06:18
Chloride 97 mmol/L (98-107) L 08/20/23 06:18
Carbon Dioxide 26 mmol/L (22-30) 08/20/23 06:18
BUN 48 mg/dl (9-20) H 08/20/23 06:18
Creatinine 9.0 mg/dL (0.7-1.3) H* 08/20/23 06:18
eGFR 7.07 08/20/23 06:18
Glucose 236 mg/dl (70-99) H 08/20/23 06:18
Calcium 8.8 mg/dl (8.4-10.2) 08/20/23 06:18
Albumin 3.9 g/dl (3.5-5.0) 08/17/23 13:12
Physical Exam
-
Vital Signs:
Vital Signs
Temp Pulse Resp BP Pulse Ox
98.2 F 97 20 126/75 96
08/20/23 11:00 08/20/23 12:05 08/20/23 12:05 08/20/23 11:00 08/20/23 12:05
Cardiovascular:: Regular rate and rhythm
Respiratory:: Bilateral: Coarse
Lung Excursion:: Normal
Abdomen:: Nontender and Soft
Bowel Sounds:: Normal
Extremity Edema:: None: Bilateral:
[2023-08-20 15:10] VITALS: BP 141/85
[2023-08-20] MEDS: VENTOLIN NEBULES INH (15:46)
[2023-08-20 16:21] LABS: Glucose - Point of Care 191 mg/dl (70-99)
[2023-08-20] MEDS: LIPITOR 40 MG PO (17:10)
[2023-08-20] MEDS: ROCALTROL 0.5 MCG PO (17:10)
[2023-08-20] MEDS: NOVOLOG FLEXPEN-MODERATE RESISTANCE 1 UNITS SC (17:11)
[2023-08-20 17:14] LABS: NT-proBNP 4180 pg/ml
--- NOTE | 2023-08-20 18:08 | W.PN.HOSP.TC ---
Today's Communication/Plan
-
Wean off oxygen as tolerates
Monitor for recurrent hemoptysis.
Supportive therapy
HD as per schedule
Adjust subcu insulin while off insulin pump.
Assessment / Plan
Assessment / Plan
Impression:
Acute hypoxic respiratory failure secondary to viral pneumonia/multifocal infiltrates
Acute viral pneumonia
� Viral panel positive for human metapneumovirus
Mild hemoptysis
Leukopenia.
Conditions prior to admission:
End-stage renal disease on hemodialysis
IDDM with diabetic nephropathy, failed transplant
Essential hypertension.
Secondary hyperparathyroidism
Plan
# Cough/fever/acute hypoxic respiratory failure requiring 5-6 liters of O2 with respiratory distress from pneumonia
-Sepsis as evident by fever 103.2 WBC 2.8, tachycardia
-Chest x-ray with impression of Findings most suggestive of multifocal pneumonia within the right upper lobe.. No significant pleural effusion.
-Continue supplemental oxygen to keep sat greater than 92
--COVID-negative & Flu negative
-Viral panel positive for human metapneumovirus
-Workup wean away from bacterial infection
Follow-up chest x-ray with persistent bilateral infiltrates.
-Tylenol as needed for fever
- Added Albuterol Neb QID
-Attempt to wean off oxygen
# Anemia of chronic kidney disease/thrombocytopenia
-Hemoglobin at 7.3 given Epogen IV on 08/17. Avoid transfusion unless necessary, he is on transplant list.
- Check Iron level.
- No active bleeding
# Hyponatremia/hypokalemia, resolved
# End-stage renal disease on dialysis
-Hemodialysis at home
-calcitriol, cinacalcet continued
-Renagel continued
- Will get HD today
- Appreciate nephrology help
# IDDM
HGB A1 C 9.2 . AM BS 242
-Insulin pump is off, c/w ISS, add Insulin.
-CHO diet
# Essential hypertension
-Norvasc and metoprolol continued
#HLD
-statin continued
# DVT prophylaxis
-Heparin subcu, hold heparin due to bloody tinged sputum
# CODE STATUS
-Full code
Anticipated Discharge: 24 - 48 hours
Subjective/Interval History
-
Date of Service: August 20, 2023
Objective Data
-
Labs:
Laboratory Results
08/20/23
06:18
WBC 5.3
Hgb 7.1 L
Hct 19.7 L*
Plt Count 128 L
Sodium 135
Potassium 4.4
Chloride 97 L
Carbon Dioxide 26
BUN 48 H
Creatinine 9.0 H*
Glucose 236 H
Calcium 8.8
Vital Signs:
Vital Signs
Temp Pulse Resp BP Pulse Ox
98.1 F 101 16 141/85 92
08/20/23 15:10 08/20/23 15:10 08/20/23 15:10 08/20/23 15:10 08/20/23 15:10
I&O
08/19/23 08/20/23 08/21/23
06:59 06:59 06:59
Intake Total 240 / 240 480 / 480 240 / 240
Balance 240 / 240 480 / 480 240 / 240
Physical Exam
-
General: Well Developed and No Apparent Distress
HEENT: Normocephalic, Atraumatic and Moist Mucous Membranes
Respiratory: Clear to Auscultation
Cardiac: Regular Rhythm and S1/S2; Negative Murmur, Rub or Gallop
GI: Soft, Nontender, Nondistended and Normal Bowel Sounds; Negative Organomegaly
Rectal: Deferred by Provider
Musculoskeletal: No Clubbing, No Cyanosis and No Edema
Skin: Negative Rash
Neuro: Nonfocal/Grossly Intact
[2023-08-20 19:52] VITALS: BP 147/78
[2023-08-20 21:34] LABS: Glucose - Point of Care 195 mg/dl (70-99)
[2023-08-20 23:44] VITALS: BP 132/73
[2023-08-21] VITALS (8 sets, daily range): BP systolic 121–143; BP diastolic 64–84; PULSE 102; O2SAT 95
[2023-08-21 06:28] LABS: Hemoglobin 7.1 g/dL (13.0-18.0); Mean Corpuscular Hgb 32.9 pg (27.0-31.0); Mean Platelet Volume 10.1 fL (7.4-10.4); Platelet Count 162 10^3/uL (130-400); Red Blood Cell Count 2.16 10^6/uL (4.70-6.10); Red Cell Dist. Width 13.3 % (11.5-14.5); White Blood Cell Count 5.7 10^3/uL (4.8-10.8)
[2023-08-21 06:54] LABS: Hematocrit 20.3 % (39.0-52.0)
[2023-08-21 07:12] LABS: Blood Urea Nitrogen 61 mg/dl (9-20); Calcium 8.7 mg/dl (8.4-10.2); Carbon Dioxide 23 mmol/L (22-30); Chloride 96 mmol/L (98-107); Estimated Creatinine Clearance 9 ml/min; Glucose 173 mg/dl (70-99); Potassium 4.1 mmol/L (3.5-5.1); Sodium 137 mmol/L (135-145); eGFR 5.68
[2023-08-21] MEDS: VENTOLIN NEBULES 1.25 MG INH ×4 (07:27→18:39)
[2023-08-21 08:04] LABS: Glucose - Point of Care 183 mg/dl (70-99)
[2023-08-21] MEDS: NOVOLOG FLEXPEN 7 UNITS SC ×2 (08:47→17:53)
[2023-08-21] MEDS: NOVOLOG FLEXPEN-MODERATE RESISTANCE 2 UNITS SC (08:48)
[2023-08-21] MEDS: RENVELA 1600 MG PO ×2 (08:49→17:31)
[2023-08-21] MEDS: HEPARIN 5000 UNITS SC ×2 (08:49→20:39)
[2023-08-21] MEDS: VIBRAMYCIN 100 MG PO ×2 (08:49→20:38)
[2023-08-21] MEDS: MUCINEX 600 MG PO ×2 (08:50→20:38)
[2023-08-21] MEDS: NORVASC 5 MG PO ×2 (08:50→20:39)
[2023-08-21] MEDS: TOPROL XL 25 MG PO ×2 (08:50→20:39)
[2023-08-21] MEDS: LANTUS 0.149999999999999994 UNITS SC (08:50)
--- NOTE | 2023-08-21 10:48 | CM ---
Patient seen bedside, reports no needs to CM at this time. CM discussed PT recommendations of home health, patient declining at this time. Patient remains on O2, reports his is not on home O2. CM will continue to follow for all discharge planning
needs.
Plan; home no needs anticipated, HD flowsheets to be faxed to [facility] dc
[facility] fax- [phone]
--- NOTE | 2023-08-21 10:55 | W.PN.ID1 ---
Date of Service
Date of Service: August 21, 2023
Today's Communication
follow O2 requirements
continue supportive care
Assessment / Plan
Viral Pneumonia due to human metapnuemovirus
ESRD on HD
Failed renal transplant
- not currently immunosuppressed
- pneumonia is due to human metapneumovirus - care is supportive; antibiotics stopped
- saturations acceptable but remains on 8L NC
- follow clinically, having some slow improvment
DM2
- recommend tighter glucose control outpatient
Chief Complaint
-: Fever and Pneumonia
Subjective / Review of Systems
saturations acceptable but remains on 8L NC
fever has resolved
bp stable
wbc 5.7
K 4.1
BNP 4000 yesterday consistent with chf
Vital Signs / Physical Exam
Vital Signs
Vital Signs
Temp Pulse Resp BP Pulse Ox
97.3 F 99 18 129/78 94
08/21/23 07:25 08/21/23 08:50 08/21/23 07:29 08/21/23 08:50 08/21/23 07:29
Physical Exam
Constitutional: No Acute Distress
Cardiovascular: Regular Rate and S1/S2; Negative Murmur or Rub
Pulmonary: Clear and Symmetric; Negative Wheezes or Rales
Gastrointestinal: Soft, Non Tender, Non Distended and Normal Bowel Sounds
Skin: Warm and Dry; Negative Rash or Jaundice
Objective Data
Lab Data
Lab Results
08/21/23 05:27
08/21/23 05:27
Estimated Creat Clear 9 ml/min 08/21/23 05:27
Lactic Acid Cancelled 08/17/23 16:45
Total Bilirubin 0.8 mg/dl (0.2-1.3) 08/17/23 13:12
AST 78 U/L (17-59) H 08/17/23 13:12
ALT 35 U/L (0-50) 08/17/23 13:12
Alkaline Phosphatase 111 U/L (38-126) 08/17/23 13:12
Most recent labs reviewed.
Micro Results:
08/19/23 09:39 Respiratory Culture - Final
Sputum Usual Respiratory Bela
Gram Stain - Final
08/18/23 15:19 Blood Culture - Preliminary
Blood/Venous No Growth in 48 hours- Final report to follow
08/17/23 15:35 Blood Culture - Preliminary
Blood/Venous No Growth in 72 hours- Final report to follow
08/18/23 15:02 Blood Culture - Preliminary
Blood/Venous No Growth in 48 hours- Final report to follow
08/17/23 13:12 Blood Culture - Preliminary
Blood/Venous No Growth in 72 hours- Final report to follow
08/17/23 21:53 Respiratory Culture - Final
Sputum Usual Respiratory Bela
Gram Stain - Final
08/19/23 14:28 Influenza Type A (PCR) - Final
Nasalpharynx Not Detected
Influenza Type A (H1) (PCR) - Final
Not Detected
Influenza Type A (H3) (PCR) - Final
Not Detected
Influenza Type B (PCR) - Final
Not Detected
Resp Syncytial Virus Type A (PCR) - Final
Not Detected
Resp Syncytial Virus Type B (PCR) - Final
Not Detected
Adenovirus DNA (PCR) - Final
Not Detected
Human Metapneumovirus (PCR) - Final
DETECTED
Parainfluenza Virus Type 1 (PCR) - Final
Not Detected
Parainfluenza Virus Type 2 (PCR) - Final
Not Detected
Parainfluenza Virus Type 3 (PCR) - Final
Not Detected
Parainfluenza Virus Type 4 - Final
Not Detected
Rhinovirus (PCR) - Final
Not Detected
08/17/23 18:03 MRSA Screen - Final
Nose No Methicillin Resistant Staphylococcus aureus isolated.
08/17/23 23:10 Legionella Urinary Antigen - Final
Urine Negative for Legionella pneumophila Serogroup 1 antigen.
A negative result does not rule out the possiblity of
Legionella infection due to other serogroups or species of
Legionella. Clinical correlation is recommended.
Streptococcus pneumoniae Antigen (M - Final
Negative for Streptococcus pneumoniae antigen.
A negative result does not exclude infection with
Streptococcus pneumoniae. Clinical correlation is
recommended.
08/17/23 13:12 Influenza Types A & B (JAKUB) - Final
Nasal Swab Negative for Influenza A & B, NAAT
Negative results must be combined with clinical observations
and patient history.
Nucleic Acid Amplification test (NAAT)performed on the
[employer] platform.
--- NOTE | 2023-08-21 12:00 | W.PN.PUL3 ---
Today's Communication / Plan
-
O2
Atbs
HD as per nephrology --> next session today - aim to make net negative 1-1.5L
Walking O2 study prior to discharge
Start ensure dietary supplemental with nephrocaps as he says his appetite is reduced
Assessment
-
Assessment:
Mr. Juan Dillard is a 37/M adm 08-16 with 5 to 6-day history of cough, fever, chills, mild abd pain, started on azithromycin as outpatient last 08-16. Reportedly patient's and one child have similar symptoms. At ER, fever of 104F,
leukopenia, anemia, thrombocytopenia. Chest x-ray with basilar infiltrates. Significant past medical history of chronic kidney disease on dialysis MWF, failed kidney transplant, hypertension, type 2 diabetes mellitus
Impression:
Acute respiratory failure with hypoxia due to viral pneumonia in the setting of possible acute interstitial edema
Supplemental oxygen dependent due to multifocal pneumonia
Fever
Productive cough: mild hemoptysis (pinkish sputum)
Leukopenia
Bilateral pulmonary infiltrates
Anemia (Hb baeline 8.5-10)
Conditions [employer]:
COVID pneumonia, adm DH May 2022, received O2, dexam, remdesivir and tozilizumab, did not need home O2 upon d/c
CKD on dialysis MWF ([facility]UE AV[facility]), living donor renal transplant in [place] in 2014, doing OK till 2021, renal transplant impaired function since Apr 2022 returnting to HD, nonfunctioning kidney transplant by May 2022. History of IgA nephropathy,
status post living unrelated kidney transplant in the [facility], unfortunately progressive transplant failure, DERIC in setting of BK viral infection followed by varicella infection
HTN
T1DM
Secondary hyperparathyroidism
Nonsmoker
Plan:
Admission chest x-ray with subtle patchy infiltration in the right midlung
Chest ray 08-17, underpenetrated technique but right greater than left basilar infiltrates as well as pulmonary vascular congestion
Intermittent CXR will be followed 05-20, chest CT depending on scenario
Legionella and strep pn urinary antigens negative
Sputum culture contaminated, reordered, 08-18 --> usual respiratory mellissa
Mild pinkish sputum, reports improvement
Reports interim moderate improvement in dyspnea and productive cough
MRSA screening negative
COVID and flu test negative
Blood cultures NGTD
Viral panel 08-18 (+) for human metapneumovirus
Interferon Gamma Release Assay for TB 08-18 pending
Started empiric ceftriaxone and p.o. doxycycline per ID recommendation on August 17 (admission Vanco and Zosyn discontinued)
ID adjusted atbs 08-18 to meropenem and po doxy bid --> given patient has evidence of viral pneumonia, continue with short course of antibiotics, currently on doxycycline; meropenem DC'd
May qualify for bronchoscopy depending on response --> continue to monitor for now and if O2 requirements worsen then will consider bronchoscopy at that time
Oxygen protocol to continue --> explained that he may need temporary oxygen after discharge but he says that he would not be amenable to doing this as he already has equipment at home for dialysis and children at home
Not on home O2, no BDs
Denies use of illicit drugs, vaping or ETOH
Continue supplemental oxygen to maintain SpO2 >90-94%
Transfuse if needed to maintain Hb >7 g/dL
TTE done on 08/20/2023 shows normal RV size/function with preserved LVEF at 55 to 60%, mild MS, and a trivial pericardial effusion
Born in [place], came to [place] at age 24 about 12 y ago, intermittent travel to [place] for vacation
No PH or FH pulm TB
No significant environmental or recreational exposures
Tested for hep B and HIV at HD unit, states last PPD in Apr 2023 (always negative)
Off immunosuppression for failed renal transplant (was on tacrolimus, MMF and low dose prednisone until May 2022)
Follow-up QuantiFERON
Asp precs
Acapella, IS
Mucolytics
Renal following
Received full session on home hemodialysis on August 16 prior to admission
Hemodialysis 08-17, next session today
D/w Mr Dillard on a daily basis
Total time spent today was 35 minutes for this encounter. Time includes reviewing laboratory test/imaging results, reviewing pertinent medical records, obtaining and reviewing medical history, performing an appropriate exam, ordering medications,
tests and procedures. Time also includes documentation of this encounter, coordinating patient care and communicating with other healthcare professionals. Total time does not include separately billed tests performed on this date of service.
Subjective Data
-
Date of Service:
Date of Service: August 21, 2023
Chief Complaint: Pulmonary Follow Up
Subjective:
Patient seen this morning. Getting dialysis today. Endorses a reduced appetite. Still having a cough. He is currently on 6 L/min nasal cannula, breathing comfortably. Hb is 7.1 today. Febrile overnight to 100.5 �F. He currently denies any
chest pain, headache, or chills.
Review of Systems
General: Other (Negative unless mentioned above)
Objective Data
Data Reviewed
Vital Signs / I&O / Oxygen:
Vital Signs
Temp Pulse Resp BP Pulse Ox
97.3 F 99 18 129/78 94
08/21/23 07:25 08/21/23 08:50 08/21/23 07:29 08/21/23 08:50 08/21/23 07:29
Intake and Output
08/20/23 08/21/23 08/22/23
06:59 06:59 06:59
Intake Total 480 / 480 360 / 360
Balance 480 / 480 360 / 360
SaO2 94
Nasal Cannula flow liters per 8
minute
Physical Exam
General: Respiratory Distress (Negative), Comfortable and Good Appetite
HEENT: Normocephalic, Anicteric and Moist Mucous Membranes
Cardiovascular: Regular Rhythm, Murmur (n), Peripheral Edema (n) and Calf Tenderness (n)
Respiratory: Wheeze (Negative), Crackles (Bilaterally), Rhonchi (negative), Non-Labored Respirations and Stridor (n)
GI: Soft, Non Distended and Non Tender
Neurology: AO x 3 and No Motor Deficits
Skin: Warm and Dry
Labs/Micro/Reports
Lab Data
08/21/23 05:27
08/21/23 05:27
Microbiology
08/19/23 09:39 Sputum Respiratory Culture - Final
Usual Respiratory Mellissa
08/19/23 09:39 Sputum Gram Stain - Final
08/18/23 15:19 Blood/Venous Blood Culture - Preliminary
No Growth in 48 hours- Final report to follow
08/17/23 15:35 Blood/Venous Blood Culture - Preliminary
No Growth in 72 hours- Final report to follow
08/18/23 15:02 Blood/Venous Blood Culture - Preliminary
No Growth in 48 hours- Final report to follow
08/17/23 13:12 Blood/Venous Blood Culture - Preliminary
No Growth in 72 hours- Final report to follow
08/17/23 21:53 Sputum Respiratory Culture - Final
Usual Respiratory Mellissa
08/17/23 21:53 Sputum Gram Stain - Final
08/19/23 14:28 Nasalpharynx Influenza Type A (PCR) - Final
Not Detected
08/19/23 14:28 Nasalpharynx Influenza Type A (H1) (PCR) - Final
Not Detected
08/19/23 14:28 Nasalpharynx Influenza Type A (H3) (PCR) - Final
Not Detected
08/19/23 14:28 Nasalpharynx Influenza Type B (PCR) - Final
Not Detected
08/19/23 14:28 Nasalpharynx Resp Syncytial Virus Type A (PCR) - Final
Not Detected
08/19/23 14:28 Nasalpharynx Resp Syncytial Virus Type B (PCR) - Final
Not Detected
08/19/23 14:28 Nasalpharynx Adenovirus DNA (PCR) - Final
Not Detected
08/19/23 14:28 Nasalpharynx Human Metapneumovirus (PCR) - Final
DETECTED
08/19/23 14:28 Nasalpharynx Parainfluenza Virus Type 1 (PCR) - Final
Not Detected
08/19/23 14:28 Nasalpharynx Parainfluenza Virus Type 2 (PCR) - Final
Not Detected
08/19/23 14:28 Nasalpharynx Parainfluenza Virus Type 3 (PCR) - Final
Not Detected
08/19/23 14:28 Nasalpharynx Parainfluenza Virus Type 4 - Final
Not Detected
08/19/23 14:28 Nasalpharynx Rhinovirus (PCR) - Final
Not Detected
08/17/23 18:03 Nose MRSA Screen - Final
No Methicillin Resistant Staphylococcus aureus isolated.
[2023-08-21 12:19] LABS: Glucose - Point of Care 276 mg/dl (70-99)
[2023-08-21] MEDS: NOVOLOG FLEXPEN-MODERATE RESISTANCE SC (12:35)
[2023-08-21] MEDS: NOVOLOG FLEXPEN SC (12:35)
[2023-08-21] MEDS: RENVELA PO (12:37)
--- NOTE | 2023-08-21 12:38 | PTCARENOTE ---
patient aaox3, BS: 276. Pt refused his 11:30 NovoLog insulin. Pt Not eating lunch. no s/s of distress noted. Md aware. plan of care ongoing. Receiving .
--- NOTE | 2023-08-21 12:45 | W.PN.NEPH.HD ---
Assessment
-
Seen on HD. no complaints. VSS, on less supplemental O2-6L. IV iron on HD today. Access ok
tried to challenge weight last treatment, BP dropped
Progress Note - Hemodialysis
-
Date of Service: August 21, 2023
Duration: 30 minutes and 3 hours
Potassium Bath: 3
Calcium Bath: 2.5
Opti-Dialyzer: 160
Ultrafiltration: Other (2kg)
Blood Flow: 400
Dialysate Flow: 600
Heparin: 0
EPO: 06940 units
--- NOTE | 2023-08-21 12:50 | PN.DE.MGMTRT ---
Insulin Management
- -
08/21/2023: Diabetes Management Consult Follow up
Patient admitted with severe sepsis, pansinusitis, Pneumonia/COVID, Acute on CKD and DKA.
PMH: HTN, IgA nephropathy s/p kidney transplant in [place] in 2014 with subsequent T2DM s/p transplant since 2018, has been on insulin therapy via pump since 2019- Medtronic MiniMed 770G NovoLog insulin and CGM-Guardian. He is followed by [facility]
Endocrinology Dr. Madhuri Alvarado.
A1C on admission 9.2%, was 6.9% 10/07/2022. Pt does not have Type 1 DM as documented in chart, he underwent antibody testing by his Endo which were negative.
Pt awake, A/O x3, sitting up in bed, no complaint. Able to discuss diabetes mgt.
States he uses a total of 100 units of insulin daily via pump therapy. He states he is having trouble with his Guardian sensor and Medtronic is supposed to replace it. He prefers not to restart pump until discharge.
Yesterday glucose premeal range is 191 to 217, requiring 1-3 units of additional corrective insulin
Lantus 15 units in AM started yesterday. Fasting glucose this AM 183. NovoLog 7 units AC started with lunch. Change from high to moderate corrective with meals. Pre lunch glucose today 276, patient refused meal time and corrective insulin.
Diabetes History
- -
Type of Diabetes: 2 requiring insulin
Pre-Admission Diabetes Regimen
08/21/23
05:27
Creatinine 10.8 H*
Lab Results
Hemoglobin A1c 9.2 % (4.0-5.6) H 08/18/23 05:08
Insulin Pump Settings
IP Diabetes Regimen
08/20/23 08/20/23 08/21/23
16:18 21:32 05:27
Glucose 173 H
POC Glucose 191 H 195 H
08/21/23 08/21/23
07:59 12:17
Glucose
POC Glucose 183 H 276 H
Meal type: Dinner
Meal type: Dinner
Meal type: Lunch
Meal type: Breakfast
Amount consumed: 30%
Amount consumed: 0
Amount consumed: 100%
Amount consumed: 15%
Patient Education
[2023-08-21] MEDS: RETACRIT 10000 UNITS IV (14:08)
[2023-08-21] MEDS: FERRLECIT 125 MG IV (14:09)
--- NOTE | 2023-08-21 16:34 | W.PN.HOSP.TC ---
Today's Communication/Plan
-
Attempt to wean off oxygen as tolerated.
Hemodialysis.
Follow-up temperature trend.
Adjust insulin regimen.
Assessment / Plan
Assessment / Plan
Impression:
Acute hypoxic respiratory failure secondary to viral pneumonia/multifocal infiltrates
Acute viral pneumonia
� Viral panel positive for human metapneumovirus
Mild hemoptysis
Leukopenia.
Conditions prior to admission:
End-stage renal disease on hemodialysis
IDDM with diabetic nephropathy, failed transplant
Essential hypertension.
Secondary hyperparathyroidism
Plan
# Cough/fever/acute hypoxic respiratory failure requiring 5-6 liters of O2 with respiratory distress from pneumonia
-Sepsis as evident by fever 103.2 WBC 2.8, tachycardia
-Chest x-ray with impression of Findings most suggestive of multifocal pneumonia within the right upper lobe.. No significant pleural effusion.
-Continue supplemental oxygen to keep sat greater than 92
--COVID-negative & Flu negative
-Viral panel positive for human metapneumovirus
-Workup wean away from bacterial infection
Follow-up chest x-ray with persistent bilateral infiltrates.
-Tylenol as needed for fever
- Added Albuterol Neb QID
-Attempt to wean off oxygen
# Anemia of chronic kidney disease/thrombocytopenia
-Hemoglobin at 7.3 given Epogen IV on 08/17. Avoid transfusion unless necessary, he is on transplant list.
- Check Iron level.
- No active bleeding
-Given ongoing transplant evaluation, attempt to avoid transfusion unless absolutely necessary.
# Hyponatremia/hypokalemia, resolved
# End-stage renal disease on dialysis
-Hemodialysis at home
-calcitriol, cinacalcet continued
-Renagel continued
- Will get HD today
- Appreciate nephrology help
# IDDM
HGB A1 C 9.2 . AM BS 242
-Insulin pump is off, c/w ISS, add Insulin.
-CHO diet
# Essential hypertension
-Norvasc and metoprolol continued
#HLD
-statin continued
# DVT prophylaxis
-Heparin subcu, hold heparin due to bloody tinged sputum
# CODE STATUS
-Full code
Anticipated Discharge: 24 - 48 hours
Subjective/Interval History
-
Date of Service: August 21, 2023
Objective Data
-
Labs:
Laboratory Results
08/21/23
05:27
WBC 5.7
Hgb 7.1 L
Hct 20.3 L*
Plt Count 162 D
Sodium 137
Potassium 4.1
Chloride 96 L
Carbon Dioxide 23
BUN 61 H
Creatinine 10.8 H*
Glucose 173 H
Calcium 8.7
Vital Signs:
Vital Signs
Temp Pulse Resp BP Pulse Ox
100.5 F H 100 18 143/84 99
08/21/23 11:10 08/21/23 15:19 08/21/23 15:19 08/21/23 11:10 08/21/23 15:19
I&O
08/20/23 08/21/23 08/22/23
06:59 06:59 06:59
Intake Total 480 / 480 360 / 360
Balance 480 / 480 360 / 360
Physical Exam
-
General: Well Developed and No Apparent Distress
HEENT: Normocephalic, Atraumatic and Moist Mucous Membranes
Respiratory: Clear to Auscultation
Cardiac: Regular Rhythm and S1/S2; Negative Murmur, Rub or Gallop
GI: Soft, Nontender, Nondistended and Normal Bowel Sounds; Negative Organomegaly
Rectal: Deferred by Provider
Musculoskeletal: No Clubbing, No Cyanosis and No Edema
Skin: Negative Rash
Neuro: Nonfocal/Grossly Intact
[2023-08-21] MEDS: LIDOCAINE 4% PATCH 1 PATCH TOPICAL (17:30)
[2023-08-21] MEDS: ROCALTROL 0.5 MCG PO (17:31)
[2023-08-21] MEDS: LIPITOR 40 MG PO (17:31)
[2023-08-21 17:47] LABS: Glucose - Point of Care 159 mg/dl (70-99)
[2023-08-21] MEDS: NOVOLOG FLEXPEN-MODERATE RESISTANCE 1 UNITS SC (17:53)
[2023-08-21] MEDS: TESSALON PERLES 200 MG PO (17:55)
[2023-08-21] MEDS: NEPHROCAP 1 CAPSULE PO (18:35)
[2023-08-22 03:49] VITALS: BP 128/74
[2023-08-22 05:32] VITALS: BMI 29.1
[2023-08-22 06:23] LABS: Hematocrit 21.7 % (39.0-52.0); Hemoglobin 7.3 g/dL (13.0-18.0); Mean Corp Hgb Conc. 33.6 g/dL (33.0-37.0); Mean Corpuscular Hgb 32.3 pg (27.0-31.0); Mean Platelet Volume 9.7 fL (7.4-10.4); Platelet Count 198 10^3/uL (130-400); Red Blood Cell Count 2.26 10^6/uL (4.70-6.10); Red Cell Dist. Width 13.7 % (11.5-14.5); White Blood Cell Count 4.6 10^3/uL (4.8-10.8)
[2023-08-22 06:50] LABS: Blood Urea Nitrogen 34 mg/dl (9-20); Calcium 8.7 mg/dl (8.4-10.2); Carbon Dioxide 30 mmol/L (22-30); Chloride 96 mmol/L (98-107); Estimated Creatinine Clearance 13 ml/min; Glucose 201 mg/dl (70-99); Potassium 4.4 mmol/L (3.5-5.1); Sodium 137 mmol/L (135-145)
--- NOTE | 2023-08-22 07:13 | PN.DE.MGMTRT ---
Insulin Management
- -
08/22/2023: Diabetes Management Consult Follow up
Patient admitted with severe sepsis, pansinusitis, Pneumonia/COVID, Acute on CKD and DKA.
PMH: HTN, IgA nephropathy s/p kidney transplant in [place] in 2014 with subsequent T2DM s/p transplant since 2018, has been on insulin therapy via pump since 2019- Medtronic MiniMed 770G NovoLog insulin and CGM-Guardian. He is followed by [facility]
Endocrinology Dr. Madhuri Alvarado.
A1C on admission 9.2%, was 6.9% 10/07/2022. Pt does not have Type 1 DM as documented in chart, he underwent antibody testing by his Endo which were negative.
Pt awake, A/O x3, sitting up in bed, no complaint. Able to discuss diabetes mgt.
He states he is having trouble with his Guardian sensor and Medtronic is supposed to replace it. He prefers not to restart pump until discharge. His pump is not here in the hospital.
Yesterday glucose premeal range is 159 to 276, requiring 1-3 units of additional corrective insulin
Lantus 15 units in AM started yesterday. Fasting glucose this AM 201. NovoLog 7 units AC, glucose pre dinner improved 159. Change from high to moderate corrective with meals. Pre lunch glucose today 276, patient refused meal time and corrective
insulin.
Will increase AM lantus to 18 units, continue AC novolog 7 units.
Diabetes History
- -
Type of Diabetes: 2 requiring insulin
Pre-Admission Diabetes Regimen
08/22/23
05:14
Creatinine 7.1 H*
Lab Results
Hemoglobin A1c 9.2 % (4.0-5.6) H 08/18/23 05:08
Insulin Pump Settings
IP Diabetes Regimen
08/21/23 08/21/23 08/21/23
07:59 12:17 17:45
Glucose
POC Glucose 183 H 276 H 159 H
08/22/23
05:14
Glucose 201 H
POC Glucose
Meal type: Dinner
Amount consumed: 90%
Patient Education
[2023-08-22] MEDS: VENTOLIN NEBULES 1.25 MG INH ×2 (07:27→10:51)
[2023-08-22 08:11] VITALS: BP 185/97
[2023-08-22] MEDS: MUCINEX 600 MG PO (08:30)
[2023-08-22] MEDS: HEPARIN 5000 UNITS SC (08:30)
[2023-08-22] MEDS: VIBRAMYCIN 100 MG PO (08:30)
[2023-08-22] MEDS: TOPROL XL 25 MG PO (08:30)
[2023-08-22] MEDS: NORVASC 5 MG PO (08:30)
[2023-08-22] MEDS: SENSIPAR 30 MG PO (08:30)
[2023-08-22] MEDS: LIDOCAINE 4% PATCH 1 PATCH TOPICAL (08:31)
[2023-08-22] MEDS: RENVELA 1600 MG PO ×2 (08:31→12:29)
[2023-08-22] MEDS: NEPHROCAP 1 CAPSULE PO (08:32)
[2023-08-22 08:36] LABS: Glucose - Point of Care 264 mg/dl (70-99)
[2023-08-22] MEDS: NOVOLOG FLEXPEN 7 UNITS SC ×2 (09:18→12:23)
[2023-08-22] MEDS: NOVOLOG FLEXPEN-MODERATE RESISTANCE 5 UNITS SC ×2 (09:19→12:23)
[2023-08-22 11:00] VITALS: BP 133/77
--- NOTE | 2023-08-22 11:04 | W.PN.NEPH.PH ---
Today's Communication / Plan
-
- possible DC today
Assessment/Plan
-
Assessment:
ESRD on home hemo
History of IgA nephropathy with failed txp
acute PNA
diabetes mellitus type 1
LURKT in [place] 2013
Aemia
Secondary hyperpara
Plan:
HD tomorrow, if patient is discharged, will resume home hemo
follow Hgb, will try not to transfuse given active transplant waiting list
increase LISETTE
wean O2 as allowed
-
-
Date of Service: August 22, 2023
CC / HPI / ROS
-
Chief Complaint:
ESRD on HD
History of Present Illness:
home hemo patient
arrived with high fevers, pancytopenia
tolerated HD well thus far
still with high O2 requirements
Review of Systems:
cultures negative
still with SOB
no CP
Labs
-
Labs:
WBC 4.6 10^3/uL (4.8-10.8) L 08/22/23 05:14
RBC 2.26 10^6/uL (4.70-6.10) L 08/22/23 05:14
Hgb 7.3 g/dL (13.0-18.0) L 08/22/23 05:14
Hct 21.7 % (39.0-52.0) L 08/22/23 05:14
Plt Count 198 10^3/uL (130-400) D 08/22/23 05:14
Sodium 137 mmol/L (135-145) 08/22/23 05:14
Potassium 4.4 mmol/L (3.5-5.1) 08/22/23 05:14
Chloride 96 mmol/L (98-107) L 08/22/23 05:14
Carbon Dioxide 30 mmol/L (22-30) 08/22/23 05:14
BUN 34 mg/dl (9-20) H 08/22/23 05:14
Creatinine 7.1 mg/dL (0.7-1.3) H* 08/22/23 05:14
eGFR 9.40 08/22/23 05:14
Glucose 201 mg/dl (70-99) H 08/22/23 05:14
Calcium 8.7 mg/dl (8.4-10.2) 08/22/23 05:14
Hfu-U-Zigfkqbolqv Pept 4180 pg/ml 08/20/23 16:39
Albumin 3.9 g/dl (3.5-5.0) 08/17/23 13:12
Physical Exam
-
Vital Signs:
Vital Signs
Temp Pulse Resp BP Pulse Ox
98.6 F 101 16 185/97 94
08/22/23 08:11 08/22/23 10:55 08/22/23 10:55 08/22/23 08:30 08/22/23 10:55
Cardiovascular:: Regular rate and rhythm
Respiratory:: Bilateral: Coarse
Lung Excursion:: Normal
Abdomen:: Nontender and Soft
Bowel Sounds:: Normal
Extremity Edema:: None: Bilateral:
Lewis Catheter: No
Other Findings::
5L NC (off when examining and breathing comfortably)
--- NOTE | 2023-08-22 11:14 | CM ---
Addendum entered by Deanne Mcpherson 08/22/23 14:44:
IMM signed, placed in chart.
Plan; home no needs anticipated, patient off O2. HD flowsheets to be faxed to [facility] on [employer] fax- [phone]
Original Note:
Patient seen bedside, inquiring about discharge. Patient reports he not feel he needs oxygen for home. CM will watch for possible home O2 needs. Patient reports he will call someone for transportation home if he is discharged today. CM will continue
to follow for discharge planning needs.
Plan; home no needs anticipated, patient off O2. HD flowsheets to be faxed to [facility] on [employer] fax- [phone]
--- NOTE | 2023-08-22 11:21 | W.PN.PUL3 ---
Today's Communication / Plan
-
O2
Atbs
HD as per nephrology --> last session yesterday - aim to make net negative 1-1.5L
Walking O2 study prior to discharge
Continue ensure dietary supplemental with nephrocaps as he says his appetite is reduced
Patient is being prepared for discharge home today. Pulmonary service will now sign off. Please reconsult if there are any additional questions/concerns, or if patient's respiratory status deteriorates. He should obtain a repeat CXR in 4-6 weeks
to follow his pneumonia to resolution.
Assessment
-
Assessment:
Mr. Juan Dillard is a 37/M adm 08-16 with 5 to 6-day history of cough, fever, chills, mild abd pain, started on azithromycin as outpatient last 08-16. Reportedly patient's and one child have similar symptoms. At ER, fever of 104F,
leukopenia, anemia, thrombocytopenia. Chest x-ray with basilar infiltrates. Significant past medical history of chronic kidney disease on dialysis MWF, failed kidney transplant, hypertension, type 2 diabetes mellitus
Impression:
Acute respiratory failure with hypoxia due to viral pneumonia in the setting of possible acute interstitial edema
Supplemental oxygen dependent due to multifocal pneumonia
Fever
Productive cough: mild hemoptysis (pinkish sputum)
Leukopenia
Bilateral pulmonary infiltrates
Anemia (Hb baseline 8.5-10)
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
COVID pneumonia, adm DH May 2022, received O2, dexam, remdesivir and tozilizumab, did not need home O2 upon d/c
CKD on dialysis MWF ([facility]UE AV[facility]), living donor renal transplant in [place] in 2014, doing OK till 2021, renal transplant impaired function since Apr 2022 returnting to HD, nonfunctioning kidney transplant by May 2022. History of IgA nephropathy,
status post living unrelated kidney transplant in the [facility], unfortunately progressive transplant failure, DERIC in setting of BK viral infection followed by varicella infection
HTN
T1DM
Secondary hyperparathyroidism
Nonsmoker
Plan:
Admission chest x-ray with subtle patchy infiltration in the right midlung
Chest ray 08-17, underpenetrated technique but right greater than left basilar infiltrates as well as pulmonary vascular congestion
Confirmed bilateral consolidation seen on CXR from 08/20/2023
Legionella and strep pn urinary antigens negative
Sputum culture contaminated, reordered, 08-18 --> usual respiratory mellissa
Mild pinkish sputum, reports improvement
Reports interim moderate improvement in dyspnea and productive cough
MRSA screening negative
COVID and flu test negative
Blood cultures NGTD
Viral panel 08-18 (+) for human metapneumovirus
Interferon Gamma Release Assay for TB 08-18 pending
Started empiric ceftriaxone and p.o. doxycycline per ID recommendation on August 17 (admission Vanco and Zosyn discontinued)
ID adjusted atbs 08-18 to meropenem and po doxy bid --> given patient has evidence of viral pneumonia, continue with short course of antibiotics, currently on doxycycline; meropenem DC'd
May qualify for bronchoscopy depending on response --> given he continues to improve and is now been weaned to room air, there is no indication for bronchoscopy at this time.
Oxygen protocol to continue --> explained that he may need temporary oxygen after discharge but he says that he would not be amenable to doing this as he already has equipment at home for dialysis and children at home --> he was weaned down to room
air today and he is breathing comfortably. Would recommend checking walking pulse oximetry prior to discharge
Not on home O2, no BDs
Denies use of illicit drugs, vaping or ETOH
Continue supplemental oxygen to maintain SpO2 >90-94%
Transfuse if needed to maintain Hb >7 g/dL
TTE done on 08/20/2023 shows normal RV size/function with preserved LVEF at 55 to 60%, mild MS, and a trivial pericardial effusion
Born in [place], came to [place] at age 24 about 12 y ago, intermittent travel to [place] for vacation
No PH or FH pulm TB
No significant environmental or recreational exposures
Tested for hep B and HIV at HD unit, states last PPD in Apr 2023 (always negative)
Off immunosuppression for failed renal transplant (was on tacrolimus, MMF and low dose prednisone until May 2022)
Follow-up QuantiFERON - pending
Asp precs
Acapella, IS
Mucolytics
Renal following
Received full session on home hemodialysis on August 16 prior to admission
Hemodialysis -, last session yesterday
D/w Mr Dillard on a daily basis
Patient is being prepared for discharge home today. Pulmonary service will now sign off. Thank you for allowing us to be involved in the care of this patient. Please reconsult if there are any additional questions/concerns, or if patient's
respiratory status deteriorates. He should obtain a repeat CXR in 4-6 weeks to follow his pneumonia to resolution.
Total time spent today was 25 minutes for this encounter. Time includes reviewing laboratory test/imaging results, reviewing pertinent medical records, obtaining and reviewing medical history, performing an appropriate exam, ordering medications,
tests and procedures. Time also includes documentation of this encounter, coordinating patient care and communicating with other healthcare professionals. Total time does not include separately billed tests performed on this date of service.
Subjective Data
-
Date of Service:
Date of Service: August 22, 2023
Chief Complaint: Pulmonary Follow Up
Subjective:
Patient seen and evaluated at bedside. No acute events reported overnight. Weaned down from nasal cannula to room air this afternoon. He felt well and was breathing comfortably. Patient denies chest pain, headache, fevers or chills. Still has a
cough that is bothersome albeit it is improved compared to the last few days.
Review of Systems
General: Other (Negative unless mentioned above)
Objective Data
Data Reviewed
Vital Signs / I&O / Oxygen:
Vital Signs
Temp Pulse Resp BP Pulse Ox
98.6 F 101 16 185/97 94
08/22/23 08:11 08/22/23 10:55 08/22/23 10:55 08/22/23 08:30 08/22/23 10:55
Intake and Output
08/21/23 08/22/23 08/23/23
06:59 06:59 06:59
Intake Total 360 / 360 360 / 360
Balance 360 / 360 360 / 360
SaO2 94
Nasal Cannula flow liters per 5
minute
Physical Exam
General: Respiratory Distress (Negative), Comfortable and Good Appetite
HEENT: Normocephalic, Anicteric and Moist Mucous Membranes
Cardiovascular: S1-S2, Murmur (n), Peripheral Edema (n) and Calf Tenderness (n)
Respiratory: Wheeze (Negative), Crackles (Bilaterally), Rhonchi (negative), Non-Labored Respirations and Stridor (n)
GI: Soft, Non Distended and Non Tender
Neurology: AO x 3 and No Motor Deficits
Skin: Warm and Dry
Labs/Micro/Reports
Lab Data
08/22/23 05:14
08/22/23 05:14
Microbiology
08/18/23 15:19 Blood/Venous Blood Culture - Preliminary
No Growth in 72 hours- Final report to follow
08/17/23 15:35 Blood/Venous Blood Culture - Preliminary
No Growth in 4 days- Final report to follow
08/18/23 15:02 Blood/Venous Blood Culture - Preliminary
No Growth in 72 hours- Final report to follow
08/17/23 13:12 Blood/Venous Blood Culture - Preliminary
No Growth in 4 days- Final report to follow
08/19/23 09:39 Sputum Respiratory Culture - Final
Usual Respiratory Mellissa
08/19/23 09:39 Sputum Gram Stain - Final
08/17/23 21:53 Sputum Respiratory Culture - Final
Usual Respiratory Mellissa
08/17/23 21:53 Sputum Gram Stain - Final
08/19/23 14:28 Nasalpharynx Influenza Type A (PCR) - Final
Not Detected
08/19/23 14:28 Nasalpharynx Influenza Type A (H1) (PCR) - Final
Not Detected
08/19/23 14:28 Nasalpharynx Influenza Type A (H3) (PCR) - Final
Not Detected
08/19/23 14:28 Nasalpharynx Influenza Type B (PCR) - Final
Not Detected
08/19/23 14:28 Nasalpharynx Resp Syncytial Virus Type A (PCR) - Final
Not Detected
08/19/23 14:28 Nasalpharynx Resp Syncytial Virus Type B (PCR) - Final
Not Detected
08/19/23 14:28 Nasalpharynx Adenovirus DNA (PCR) - Final
Not Detected
08/19/23 14:28 Nasalpharynx Human Metapneumovirus (PCR) - Final
DETECTED
08/19/23 14:28 Nasalpharynx Parainfluenza Virus Type 1 (PCR) - Final
Not Detected
08/19/23 14:28 Nasalpharynx Parainfluenza Virus Type 2 (PCR) - Final
Not Detected
08/19/23 14:28 Nasalpharynx Parainfluenza Virus Type 3 (PCR) - Final
Not Detected
08/19/23 14:28 Nasalpharynx Parainfluenza Virus Type 4 - Final
Not Detected
08/19/23 14:28 Nasalpharynx Rhinovirus (PCR) - Final
Not Detected
08/17/23 18:03 Nose MRSA Screen - Final
No Methicillin Resistant Staphylococcus aureus isolated.
[2023-08-22 12:16] LABS: Glucose - Point of Care 267 mg/dl (70-99)
[2023-08-22] MEDS: LANTUS 0.179999999999999993 UNITS SC (12:22)
[2023-08-22 12:48] LABS: Glucose - Point of Care 335 mg/dl (70-99)
--- NOTE | 2023-08-22 14:01 | W.DS.TRANS ---
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
-
Discharge Instructions:
Discharge Diagnosis/Procedures Impression:
Acute hypoxic respiratory failure secondary to
viral pneumonia/multifocal infiltrates
Acute viral pneumonia
� Viral panel positive for human metapneumovirus
Mild hemoptysis
Leukopenia.
Conditions prior to admission:
End-stage renal disease on hemodialysis
IDDM with diabetic nephropathy, failed
transplant
Essential hypertension.
Secondary hyperparathyroidism
Diet Diabetic, Carb Controlled
Instructions:
Stand-Alone Forms:
Changes to Home Medications: No
Discharge Medications:
DC Medications w/original date entered in [facility]
acetaminophen 500 mg tablet (Tylenol Extra Strength) 500 mg PO DAILYPRN PRN mild pain 08/17/23
amlodipine 5 mg tablet 5 mg PO BID Blood Pressure 08/17/23
atorvastatin 40 mg tablet 40 mg PO QPM High Cholesterol 08/17/23
calcitriol 0.5 mcg capsule 0.5 mcg PO QPM Supplement 08/17/23
cinacalcet 30 mg tablet 30 mg PO MOWE@0800 Supplement 08/17/23
docusate sodium 100 mg capsule (Stool Softener) 100 mg PO DAILY PRN constipation 08/17/23
insulin aspart U-100 100 unit/mL subcutaneous solution (Novolog U-100 Insulin aspart) 0 unit SC .VIA PUMP Diabetes 08/17/23
metoprolol succinate 25 mg tablet,extended release 24 hr 25 mg PO BID Blood Pressure 08/17/23
sevelamer carbonate 800 mg tablet 1,600 mg PO MEALS Supplement 08/17/23
guaifenesin 600 mg tablet, extended release 12 hr 600 mg PO Q12 #30 tabs 08/22/23
Home Medication Changes
Pending Results: No
[2023-08-22 14:33] VITALS: BP 130/82
[2023-08-23 07:45] LABS: Glucose - Point of Care 294 mg/dl (70-99)
[2023-08-23 16:10] LABS: Quantiferon Mitogen minus NIL 9.95 IU/mL; Quantiferon NIL 0.05 IU/mL; Quantiferon Plus TB1 minus NIL 0.06 IU/mL (<=0.34); Quantiferon Plus TB2 minus NIL 0.06 IU/mL (<=0.34); Quantiferon TB Gold Plus Negative (Negative)
== END 2023-08-22 14:41 | disposition home or self-care (01) | DRG 871 ==
LOC: 2 NORTH 16:34
PROVIDERS: Nurse Practitioner; Registered Nurse; Specialist; ADMITTING PHYSICIAN Internal Medicine; ATTENDING PHYSICIAN Internal Medicine; CONSULT PHYSICIAN Internal Medicine Pulmonary Disease; CONSULT PHYSICIAN Student in an Organized Health Care Education/Training Program; EMERGENCY PHYSICIAN Emergency Medicine; FAMILY PHYSICIAN Internal Medicine
PROC: 5A1D70Z Performance of Urinary Filtration, Intermittent, Less than 6 Hours Per Day (ICD-10-PCS; 2023-08-18)
DX: A41.89 Other specified sepsis (principal); J12.3 Human metapneumovirus pneumonia; N18.6 End stage renal disease; J96.01 Acute respiratory failure with hypoxia; T86.12 Kidney transplant failure; E87.1 Hypo-osmolality and hyponatremia; E87.22 Chronic metabolic acidosis; N25.81 Secondary hyperparathyroidism of renal origin; I12.0 Hypertensive chronic kidney disease with stage 5 chronic kidney disease or end stage renal disease; N17.9 Acute kidney failure, unspecified; R04.2 Hemoptysis; R65.20 Severe sepsis without septic shock; E10.22 Type 1 diabetes mellitus with diabetic chronic kidney disease; D72.819 Decreased white blood cell count, unspecified; D63.1 Anemia in chronic kidney disease; D69.6 Thrombocytopenia, unspecified; E87.6 Hypokalemia; E78.00 Pure hypercholesterolemia, unspecified; Y83.0 Surgical operation with transplant of whole organ as the cause of abnormal reaction of the patient, or of later complication, without mention of misadventure at the time of the procedure; Z76.82 Awaiting organ transplant status; Z79.4 Long term (current) use of insulin; Z99.2 Dependence on renal dialysis; Z11.52 Encounter for screening for COVID-19; Z79.621 Long term (current) use of calcineurin inhibitor; Z87.01 Personal history of pneumonia (recurrent); Z86.19 Personal history of other infectious and parasitic diseases
CPT/HCPCS: 71045; 71046; 80048; 80053; 80202; 82962; 83036; 83540; 83605; 83880; 85025; 85027; 86480; 87040; 87070; 87205; 87449; 87502; 87633; 87811; 87899; 93306; 94640; 96365; 97110; 97116; 97162; 99285; J2916; P9047; Q5106